=== PATIENT | female | born 1945 | race Caucasian/White ===

== ENCOUNTER 2024-03-20 10:30 | Emergency (ER) | payer OTHER ==
--- OUTSIDE RECORDS SUMMARY | 2024-03-20 10:33 | XMS REPORT | Continuity of Care Document ---
Author Name Unknown Address [address] [facility] [address] [place] [address] [facility] thconnect Address [address] [facility] [address] [place] [address] Care Team Providers Care Rail Grinder Name Role Phone Kylee PIERSON MD, Jacky Nogueira Primary Care Physician U ISABEL Morris Attending Clinician Unavailable Jessee Figueroa MD Attending Clinician JESSEE FIGUEROA Attending Clinician Unavail able PRIYANKA MEANS Attending Clinician Unavailable Priya Redman MD Attending Clinician [phone] PRIYA REDMAN Attending Clinician Unavailable DIANN TORRES Attending Clinician Unavailable DIANN TORRES Attending Clinician Unavailable RADIOLOGY Attending Clinician Unavailable Radiology Attending Clinician Unavailable JESSEE FIGUEROA Admitting Clinician Unavail able Payers Payer Name Policy Type Policy Number Effective Date Expirati on Date Source [employer] MEDICARE Medicare [id number] 2023 00:00:00 Problems Condition Name Condition Details Condition Category Status Onset Date Resolution Date Last Treatment Date Treating Clinician Comments Source Preoperati ve cardiovasc ular examinatio n Preoperati ve cardiovasc ular examinatio n Disease Active 830 00:00: 00 [facility] Preoperati ve cardiovasc ular examinatio n Preoperati ve cardiovasc ular examinatio n Disease Active 8-20 00:00: 00 Timothy Mason Thoracic compressio n fracture Thoracic compressio n fracture Disease Active 6- 00:00: 00 Timothy Mason Scoliosis Scoliosis Disease Active 6- 00:00: 00 Timothy Mason Peripheral neuropathy Peripheral neuropathy Disease Active 6- 00:00: 00 Timothy Mason Memory loss Memory loss Disease Active 09-06 00:00: 00 Timothy Mason Lumbar radiculopa thy Lumbar radiculopa thy Disease Active 09-06 00:00: 00 Timothy Mason Back pain Back pain Disease Active 09-06 00:00: 00 Timothy Mason Cervical myelopathy Cervical myelopathy Disease Active 09-06 00:00: 00 Timothy Mason Overactive bladder Overactive bladder Disease Active 1-25 00:00: 00 Timothy Mason Microscopi c colitis Microscopi c colitis Disease Active 8-03 00:00: 00 [facility] Urinary incontinen ce Urinary incontinen ce Disease Active 5-16 00:00: 00 Timothy Mason Chronic diarrhea Chronic diarrhea Disease Active 3-28 00:00: 00 Timothy Mason Tobacco use Tobacco use Disease Active 2-13 00:00: 00 Timothy Mason Fatigue Fatigue Disease Active 2-13 00:00: 00 Timothy Mason Fall Fall Disease Active 2-13 00:00: 00 Timothy Mason Dysuria Dysuria Disease Active 2-13 00:00: 00 Timothy Mason Pruritus of scalp Pruritus of scalp Disease Active 1-19 00:00: 00 Timothy Mason Lower urinary tract infectious disease Lower urinary tract infectious disease Disease Active 8-17 00:00: 00 Timothy Mason H/O: depression H/O: depression Disease Active 3-10 00:00: 00 Timothy Mason Essential hypertensi on Essential hypertensi on Disease Active 04-10 00:00: 00 Timothy Mason Left foot pain Left foot pain Disease Active 08-25 00:00: 00 [facility] Memory impairment Memory impairment Disease Resolve d 11-19 00:00: 00 2024-01-09 00:00:00 2024-01-09 13:15:48 Timothy Mason Allergies, Adverse Reactions, Alerts Allergy Name Allergy Type Status Severity Reaction(s) Onset Date Inactive Date Treating Clinician Comments Source NO KNOWN ALLERGIE S Drug Class Active [facility] NO KNOWN ALLERGIE S SYSTEMIC Active [facility] ALLERGIE S NOT ON FILE SYSTEMIC Active [facility] NO KNOWN ALLERGIE S SYSTEMIC Active [facility] NO KNOWN ALLERGIE S SYSTEMIC Active [facility] Social History Social Habit Start Date Stop Date Quantity Comments Source Gender identity 2023-06-23 13:43:01 Identifies as female gender (finding[facility] of [facility] ASSERTION Possible [facility] Sexual orientation [facility] History of Social function 2024-01-09 00:00:00 2024-01-09 00:00:00 [facility] Alcoholic beverage intake 2023-11-30 00:00:00 2023-11-30 00:00:00 0 /d [facility] Alcohol intake 2023-01-01 00:00:00 2023-01-01 00:00:00 0 /d [facility] Sex assigned at 1945 00:00:00 1945 00:00:00 [facility] Smoking Status Start Date Stop Date Source Smokes tobacco daily 2023-09-07 00:00:00 [facility] Medications Ordered Medication Name Filled Medication Name Start Date Stop Date Current Medication? Ordering Clinician Indication Dosage Frequency Signature (SIG) Comments Components Source memantine (Namenda) 5 MG tablet memantine (Namenda) 5 MG tablet 2023-04 00:00: 00 Yes 5mg Q.5D TAKE 1 TABLET BY MOUTH TWICE DAILY Timothy Mason oxyBUTYnin chloride 5 mg tablet 11-29 12:37: 57 Yes 5mg Take 1 tablet by mouth in the morning and 1 tablet at noon and 1 tablet in the evening. [facility] loperamide (IMODIUM A-D) 2 mg capsule 11-29 12:37: 57 Yes 2mg Take 1 capsule by mouth 2 (two) times daily as needed for Diarrhea. [facility] omeprazole 40 mg capsule 11-29 12:37: 57 Yes 40mg Take 1 capsule by mouth in the morning. [facility] lisinopriL- hydrochloro thiazide 20-25 mg per tablet 11-29 00:00: 00 11-30 04:59 :00 No [id number] 1{tbl} Take 1 tablet by mouth in the morning. [facility] traMADol (Ultram) 50 MG tablet traMADol (Ultram) 50 MG tablet 10-14 00:00: 00 Yes [id number] 50mg QD TAKE 1 TABLET BY MOUTH DAILY Timothy Mason omeprazole (PriLOSEC) [address] capsule omeprazole (PriLOSEC) [address] capsule 09-06 13:52: 55 Yes 20mg Take 20 mg by mouth in the morning. Take before meals. Timothy Mason aspirin EC 81 MG EC tablet aspirin EC 81 MG EC tablet 09-06 13:52: 55 Yes 81mg QD Take 81 mg by mouth 1 time each day. Timothy Mason gabapentin (Neurontin) 300 MG capsule gabapentin (Neurontin) 300 MG capsule 09-06 00:00: 00 09-06 23:59 :00 No 300mg [id number] 3D Take 1 capsule by mouth in the morning and 1 capsule at noon and 1 capsule in the evening. iTmothy Mason memantine (Namenda) 5 MG tablet memantine (Namenda) 5 MG tablet 09-06 00:00: 00 02-25 00:00 :00 No 5mg Q.5D Take 1 tablet by mouth in the morning and 1 tablet in the evening. Timothy Mason vibegron (GEMTESA) 75 mg Tab 2022-04- 00:00: 00 Yes [id number] 75mg Take 75 mg by mouth in the morning. [facility] alendronate (Fosamax) 70 MG tablet alendronate (Fosamax) 70 MG tablet 2022-04 00:00: 00 Yes 70mg 70 mg = 1 tab, PO, Q7D, # 12 tab, 0 Refill(s) Timothy Mckeon Epic estradioL (ESTRACE) 0.01 % (0.1 mg/gram) vaginal cream 2022-04 00:00: 00 Yes [id number] Apply 1g vaginally at bedtime 3 times per week (Sunday//) [facility] vibegron (GEMTESA) 75 mg Tab 2022-04 0- 00:00: 00 Yes [id number] 75mg Take 75 mg by mouth in the morning. [facility] estradioL (ESTRACE) 0.01 % (0.1 mg/gram) vaginal cream 2022-04 0- 00:00: 00 02-16 00:00 :00 No [id number] Apply 1g vaginally at bedtime every night for 4 weeks [facility] cholestyram ine 4 gram packet 12-13 00:00: 00 Yes [facility] gabapentin 300 mg capsule 12-05 00:00: 00 Yes 300mg Take 1 capsule by mouth in the morning and 1 capsule in the evening. [facility] budesonide 3 mg 24 hr capsule 12-01 00:00: 00 Yes 9mg Take 3 capsules by mouth in the morning. [facility] traMADol (Ultram) 50 MG tablet traMADol (Ultram) 50 MG tablet 11-30 00:00: 00 10-14 00:00 :00 No 50mg Q2D Take 50 mg by mouth every other day. Timothy Mckeon Epic oxybutynin (Ditropan) 5 MG tablet oxybutynin (Ditropan) 5 MG tablet 15 00:00: 00 Yes 0 Refill(s) Timothy Mckeon Epic cholestyram ine (Questran) 4 g packet cholestyram ine (Questran) 4 g packet 2023-0 8-15 00:00: 00 08-21 23:59 :00 No 4g Take 4 g by mouth in the morning and 4 g at noon and 4 g in the evening. Take with meals. Timothy Mason alendronate 70 mg tablet 10-20 00:00: 00 Yes [facility] lisinopriL 5 mg tablet 10-20 00:00: 00 11-29 00:00 :00 No [facility] Cholecalcif frances, Vitamin D3, 125 mcg (5,000 unit) capsule 10-19 00:00: 00 Yes 125ug Take 125 mcg by mouth. [facility] oxyBUTYnin chloride 5 mg tablet 08-15 00:00: 00 08-15 04:59 :00 No 5mg Take 1 tablet by mouth. [facility] FLUoxetine (PROzac) 40 MG capsule FLUoxetine (PROzac) 40 MG capsule 06-19 00:00: 00 Yes 40mg 40 mg = 1 cap, PO, Daily, # 30 cap, 1 Refill(s) Timothy Mason lisinopril- hydroCHLORO thiazide 20-25 MG tablet lisinopril- hydroCHLORO thiazide 20-25 MG tablet 07-13 00:00: 00 Yes 1 tab, PO, Daily, 0 Refill(s) Timothy Mason FLUoxetine (PROZAC) 40 mg capsule 07-04 00:00: 00 Yes [facility] lisinopril- hydrochloro thiazide (PRINZIDE,Z ESTORETIC) 20-25 mg per tablet 07-04 00:00: 00 11-29 00:00 :00 No [facility] Vital Signs Vital Name Observation Time Observation Value Comments Torres smith Systolic blood pressure 2024-01-09 13:15:00 132 mm[Hg] [facility] Diastolic blood pressure 2024-01-09 13:15:00 65 mm[Hg] [facility] Heart rate 2024-01-09 13:15:00 85 /min Gissell Mason Body temperature 2024-01-09 13:15:00 36 Olga [facility] [place] Epic Respiratory rate 2024-01-09 13:15:00 16 /min [facility] Mike Epic Body height 2024-01-09 13:15:00 162.6 cm Augustin huitron [place] Epic Body weight 2024-01-09 13:15:00 62.143 kg Augustin tomy Norrisann Epic BMI 2024-01-09 13:15:00 23.52 kg/m2 Augustin rial Mike Epic Oxygen saturation in Arterial blood by Pulse oximetry 2024-01-09 13:15:00 99 /min [facility] peters Epic Systolic blood pressure 2024-01-09 13:15:00 132 mm[Hg] [facility] Epic Diastolic blood pressure 2024-01-09 13:15:00 65 mm[Hg] [facility] Epic Heart rate 2024-01-09 13:15:00 85 [facility] [place] [facility] Body temperature 2024-01-09 13:15:00 36 [facility] Epic Respiratory rate 2024-01-09 13:15:00 16 /min [facility] Body height 2024-01-09 13:15:00 162.6 cm Augustin huitron [place] Epic Body weight 2024-01-09 13:15:00 62.143 kg Augustin huitron [place] Epic BMI 2024-01-09 13:15:00 23.52 kg/m2 Augustin dominickl Mike Epic Oxygen saturation in Arterial blood by Pulse oximetry 2024-01-09 13:15:00 99 /min [facility] Epic Systolic blood pressure 2023-11-30 17:25:00 187 mm[Hg] [facility] Diastolic blood pressure 2023-11-30 17:25:00 81 mm[Hg] [facility] Heart rate 2023-11-30 17:25:00 60 /[facility] 2023-11-30 17:25:00 18 /min [facility] Body height 2023-11-30 17:25:00 162.6 cm Univ [facility] Body weight 2023-11-30 17:25:00 61.961 kg [facility] BMI 2023-11-30 17:25:00 23.45 kg/m2 [facility] Oxygen saturation in Arterial blood by Pulse oximetry 2023-11-30 17:25:00 99 /min [facility] Systolic blood pressure 2023-02-16 20:32:00 138 mm[Hg] [facility] Diastolic blood pressure 2023-02-16 20:32:00 65 mm[Hg] [facility] Heart rate 2023-02-16 20:32:00 78 /min [facility] Body temperature 2023-02-16 20:32:00 37.11 Olga [facility] Body height 2023-02-16 20:32:00 162.6 cm [facility] Body weight 2023-02-16 20:32:00 62.234 kg [facility] BMI 2023-02-16 20:32:00 23.55 kg/m2 [facility] Procedures Procedure Date / Time Performed Performing Clinicia n Source MR BRAIN WO CONTRAST 2023-05-16 20:26:09 Jessee Figueroa [facility] Encounters Start Date/Time End Date/Time Encounter Type Admission Type Attending [facility] Care Facility Care Department Encounter ID Source 2024-02-25 00:00:00 2024-02-26 09:50:37 Refill Jessee Figueroa [id number] [id number] Timothy Mckeon [facility] 2024-01-09 13:15:00 2024-01-09 13:31:38 Office Visit Jessee Figueroa [id number] Timothy Mckeon [facility] 2024-01-09 13:05:33 2024-01-09 13:31:38 Outpatient Elective JESSEE FIGUEROA EOUT EOUT [id number] [facility] 2023-12-14 07:21:00 2023-12-14 07:21:00 Outpatient PRIYANKA WATTS [facility] [id number] [facility] 2023-12-11 00:00:00 2023-12-12 12:41:34 Telephone Юлия Priya [facility] [id number] 350.1.13.10 [id number] [id number] [facility] 2023-11-30 12:30:00 2023-11-30 13:02:15 Outpatient R ЮЛИЯ [facility] [id number] [facility] 2023-11-30 12:30:00 2023-11-30 13:02:15 Office Visit Юлия [facility] [id number] 350.1.13.10 [id number] [id number] [facility] 2023-10-15 00:00:00 2023-10-15 15:02:10 RefJessee [facility] [id number] 350.1.13.70 [id number] [id number] Timothy butt [facility] 2023-09-07 13:20:19 2023-09-07 14:16:12 Outpatient Elective JESSEE FIGUEROA EOUT EOUT [id number] [facility] 2023-06-08 13:00:00 2023-06-08 13:00:00 Outpatient R DIANN TORRES ELISHA [facility] [id number] [facility] 2023-05-16 13:10:13 2023-05-16 23:59:00 Outpatient R RADIOLOGY [facility] [id number] [facility] 2023-05-16 13:10:13 2023-05-16 23:59:00 Hospital Encounter Radiology [facility] [id number] 350.1.13.10 [id number] [id number] [facility] 2023-03-16 15:00:00 2023-03-16 15:47:23 Outpatient DIANN TAM ELISHA [facility] [id number] [facility] 2023-03-16 15:00:00 2023-03-16 15:47:23 Office Visit Diann Torres [facility] [id number] 350.1.13.10 [id number] [id number] [facility] 2023-02-16 15:00:00 2023-02-16 16:28:33 Outpatient DIANN TAM ELISHA [facility] [id number] [facility] 2023-02-16 15:00:00 2023-02-16 16:28:33 Office Visit Diann Torres [facility] [id number] [id number] [id number] [id number] [facility] 2023-01-29 11:30:00 2023-01-29 11:30:00 Outpatient DIANN TAM ELISHA [facility] [id number] [facility] 2023-01-01 14:30:00 2023-01-01 16:10:05 Outpatient DIANN TAM ELISHA [facility] [id number] [facility] Results Test Description Test Time Test Comments Results Resul t Comments Source MR BRAIN WO CONTRAST 2023-05-03 4 20:54:12 EXAM: MR BRAIN WO CONTRAST HISTORY: 78 years-old Female; memory loss. TECHNIQUE: Multiplanar and multisequence MRI imaging of the brain wasobtained without contrast. COMPARISON: ?None FINDINGS: The exam is degraded by motion artifact. The ventricles and sulci are prominent suggestive of mild degree of globalcerebral volume loss. No midline shift or pathological extra-axial fluidcollection is present. The basal cisterns are unremarkable. No restricted diffusion is present. Few scattered foci of T2/FLAIRhyperintensi ties in the bilateral cerebral hemispheres, likely age-related.No abnormal gradient blooming is visualized. The T2 flow voids for the major intracranial vessels are unremarkable. Noabnormal fluid signal is present in the mastoid air cells or paranasal airsinuses. [facility]
[2024-03-20 11:19] LABS: Sqamous Epithelial <5 /HPF (None Seen); Transitional Epithelial <5 /HPF (None Seen); Urine Bacteria 20-50 /HPF (<20); Urine Culture Reflex Order REFLEXED; Urine Mucus Slight /HPF (None Seen); Urine WBC >50 /HPF (<5); Urine WBC Clump Few /HPF (None Seen)
[2024-03-20 11:20] LABS: Specific Gravity 1.019 (1.005-1.030); Urine Bilirubin NEGATIVE (Negative); Urine Blood 1+ (Negative); Urine Clarity Extremely Turbid (Clear); Urine Color Yellow (Yellow); Urine Glucose NEGATIVE (Negative); Urine Ketones NEGATIVE (Negative); Urine Micro Reflex YN NO BILL NO MICROSCOPIC; Urine Nitrite NEGATIVE (Negative); Urine Protein 1+ (Negative); Urine Urobilinogen Normal (Normal)
[2024-03-20] MEDS ORDERED: SMZ./TMP. 800/160 MG TABLET ONE (11:30)
--- NOTE | 2024-03-20 11:32 | ER ---
Nurse's Notes [facility] Name: Carmen Gabriel Age: 78 yrs Sex: Female : 1945 Arrival Date: 03/20/2024 Time: 10:30 Bed 14 Private MD: Diagnosis: UTI/ Urinary tract infection, site not specified Presentation: 03/20 10:47 Chief complaint: Burning with urination and suprapubic pain x 1 week. Recently hb completed Augmentin for UTI. Coronavirus screen: At this time, the client does not indicate any symptoms associated with coronavirus-19. Ebola Screen: No symptoms or risks identified at this time. Initial Sepsis Screen: Does the patient meet any 2 criteria? No. Patient's initial sepsis screen is negative. Does the patient have a suspected source of infection? No. Patient's initial sepsis screen is negative. Risk Assessment: Do you want to hurt yourself or someone else? Patient reports no desire to harm self or others. Onset of symptoms was March 13, 2024. 10:47 Method Of Arrival: Ambulatory hb 10:47 Acuity: ADRIÁN 4 hb Historical: - Allergies: 10:49 No Known Allergies; hb - PMHx: 10:49 Neuropathy; HTN; Colitits; IBS; hb - PSHx: 10:49 Partial Hysterectomy; Cholecystectomy; hb - Immunization history:: Adult Immunizations unknown. - Infectious Disease History:: Denies. - Social history:: Smoking status: unknown. Screenin:15 [facility] ED Fall Risk Assessment (Adult) History of falling in the last 3 months, ko1 including since admission No falls in past 3 months (0 pts) Confusion or Disorientation Yes (5 pts) Intoxicated or Sedated No (0 pts) Impaired Gait Yes (1 pt) Mobility Assist Device Used Yes (1 pt) Altered Elimination No (0 pt) Score/Fall Risk Level 3 or more points = High Risk Oriented to surroundings, Maintained a safe environment, Educated pt \T\ family on fall prevention, incl call for assistance when getting out of bed, Assessed \T\ reinforced patient's understanding of fall precautions, Hourly rounding (assess needs \T\ fall precautionary measures) done, Used ambulatory aids as needed (educated on \T\ assisted with), Apply high fall risk patient identification: yellow non skid footwear/ fall signage, Utilized family, sitter, or virtual cardiac rehabilitation specialist as indicated. Abuse screen: Denies threats or abuse. Denies injuries from another. Nutritional screening: No deficits noted. Tuberculosis screening: No symptoms or risk factors identified. Assessment: 11:16 General: Appears in no apparent distress. Behavior is cooperative. Pain: Denies pain. ko1 Neuro: No deficits noted. Cardiovascular: No deficits noted. Respiratory: No deficits noted. GI: No deficits noted. : Reports burning with urination. EENT: No deficits noted. Derm: No deficits noted. Musculoskeletal: No deficits noted. Vital Signs: 10:47 BP 148 / 55; Pulse 55; Resp 16; Temp 97.6(O); Pulse Ox 100% on R/A; Weight 58.97 kg; hb Height 5 ft. 4 in. ; Pain 6/10; 11:15 BP 144 / 54; Pulse 58; Resp 17; Pulse Ox 96% ; ko1 11:41 BP 131 / 86; Pulse 64; Resp 18; Pulse Ox 98% ; ko1 10:47 Body Mass Index 22.31 (58.97 kg, 162.56 cm) hb 10:47 Pain Scale: Adult hb ED Course: 10:37 Patient arrived in ED. ra3 10:41 Francisco Javier Daniels MD is Attending Physician. ec2 10:42 Tenisha Blancas, MIGUE is Primary Nurse. ko1 10:49 Triage completed. hb 11:04 UAM Sent. ko1 11:15 No provider procedures requiring assistance completed. Urine collected: clean catch ko1 specimen, cloudy. 11:15 Patient has correct armband on for positive identification. Bed in low position. Call ko1 light in reach. Side rails up X 1. Provided Education on: labs. Client placed on continuous cardiac and pulse oximetry monitoring. NIBP monitoring applied. youth nutritional monitor on. Door closed. Noise minimized. Lights dimmed. Warm blanket given. Pillow given. Assisted to bathroom. 11:15 Arm band placed on right wrist. Patient placed in an exam room, on a stretcher, on ko1 pulse oximetry, Patient notified of wait time. 11:33 Urine Culture Sent. ko1 11:41 Patient did not have IV access during this emergency room visit. ko1 Administered Medications: 11:35 Drug: Trimethoprim-Sulfamethoxazole PO (160 mg-800 mg (DS) 1 tablet PO once Route: PO; ko1 11:47 Follow up: Response: Medication administered at discharge. ko1 Medication: 11:15 VIS not applicable for this client. ko1 Outcome: 11:31 Discharge ordered by . ec2 11:41 Discharged to home ambulatory, with family, ko1 11:41 Condition: stable 11:41 Discharge instructions given to patient, family, Instructed on discharge instructions, follow up and referral plans. medication usage, Demonstrated understanding of instructions, follow-up care, medications, Prescriptions given X 1, :47 Patient left the ED. ko1 Addendum: 03/23/2024 08:29 Addendum: Culture Results: Positive urine culture. No further action required. Bacteria i w sensitive to prescribed antibiotic. Signatures: Dolores Kulkarni, RN Altagracia Greenwood RN RN hb Oliver, Kathy, RN RN ko1 Francisco Javier Daniels MD MD ec2 Racheal Ch 3
--- NOTE | 2024-03-20 11:32 | EDPHYS ---
Physician Documentation [facility] Name: Carmen Gabriel Age: 78 yrs Sex: Female : 1945 Arrival Date: 03/20/2024 Time: 10:30 Bed 14 Private MD: ED Physician Francisco Javier Daniels HPI: 03/20 11:23 This 78 yrs old Female presents to ER via Ambulatory with complaints of ec2 Urinary Problem - burning senation. 11:23 Patient with history of frequent urinary tract infections arrives today for dysuria and ec2 urinary frequency. No fevers or chills, no nausea or vomiting, has generally been. Recently diagnosed with urinary tract infection and finished course of Augmentin.. Historical: - Allergies: 10:49 No Known Allergies; hb - PMHx: 10:49 Neuropathy; HTN; Colitits; IBS; hb - PSHx: 10:49 Partial Hysterectomy; Cholecystectomy; hb - Immunization history:: Adult Immunizations unknown. - Infectious Disease History:: Denies. - Social history:: Smoking status: unknown. ROS: 11:23 Constitutional: as per hpi ec2 Exam: 11:23 Constitutional: GEN: NAD Head: atraumatic Eyes: EOMI Ears: External ears are ec2 normal. CV: regular rate LUNGS: no respiratory distress ABD: non-distended, soft, nontender, not guarding, not rigid SKIN: no evidence of rashes MSK: no evidence of trauma Vital Signs: 10:47 BP 148 / 55; Pulse 55; Resp 16; Temp 97.6(O); Pulse Ox 100% on R/A; Weight 58.97 kg; hb Height 5 ft. 4 in. ; Pain 6/10; 11:15 BP 144 / 54; Pulse 58; Resp 17; Pulse Ox 96% ; ko1 11:41 BP 131 / 86; Pulse 64; Resp 18; Pulse Ox 98% ; ko1 10:47 Body Mass Index 22.31 (58.97 kg, 162.56 cm) hb 10:47 Pain Scale: Adult hb MDM: 10:49 Medical Screening Exam initiated ec2 11:23 Data reviewed: vital signs, nurses notes. ED course: Patient arrives today for dysuria ec2 and urinary frequency. Examination is revealing for well-appearing nontoxic dividual's otherwise in no acute distress with a reassuring examination. Will obtain urine study. Suspect urinary tract infection. Patient otherwise without systemic signs and symptoms, doubt pyelonephritis, doubt organ malfunction.. 11:28 ED course: Urine infectious appearing, start the patient antibiotics have the patient ec2 follow-up PCP. Return precautions given.. 03/20 10:42 Order name: UAM; Complete Time: 11:28 ec2 03/20 11:23 Order name: Urine Culture EDMS Administered Medications: 11:35 Drug: Trimethoprim-Sulfamethoxazole PO (160 mg-800 mg (DS) 1 tablet PO once Route: PO; ko1 11:47 Follow up: Response: Medication administered at discharge. ko1 Disposition Summary: 03/20/24 11:31 Discharge Ordered Notes: Location: Home ec2 Condition: Stable ec2 Diagnosis - UTI/ Urinary tract infection, site not specified ec2 Followup: ec2 - With: Private Physician - When: - Reason: Re-evaluation by your physician Discharge Instructions: - Discharge Summary Sheet ec2 - Urinary Tract Infection, Adult, [id number] ec2 Forms: - Medication Reconciliation Form ec2 - Antibiotic Education ec2 - Prescription Opioid Use ec2 - Patient Portal Instructions ec2 - Leadership Thank You Letter ec2 Prescriptions: - Bactrim DS 800-160 mg Oral Tablet - take 1 tablet ORAL route every 12 hours for 7 days; 14 tablet; Refills: 0, ec2 Product Selection Permitted Signatures: Dispatcher [employer] EDAltagracia Gonsales RN Tenisha Staley RN RN ko1 Francisco Javier Daniels MD MD ec2
[2024-03-20 11:52] VITALS: TEMP 97.6
[2024-03-20 11:55] VITALS: BP 131/86; O2SAT 98
== END 2024-03-20 11:47 | disposition home or self-care (01) ==
LOC: ER 10:30
DX: N39.0 Urinary tract infection, site not specified (principal); I10 Essential (primary) hypertension; K58.9 Irritable bowel syndrome, unspecified; G62.9 Polyneuropathy, unspecified
CPT/HCPCS: 81001; 87077; 87086; 87088; 87186; 99284

== ENCOUNTER 2024-04-05 22:24 | Inpatient (IN) | payer OTHER ==
--- OUTSIDE RECORDS SUMMARY | 2024-04-05 22:30 | XMS REPORT | Continuity of Care Document ---
Author Name Unknown Address [address] [facility] [place] [address] [facility] thconnect Address [address] [place] [address] Care Team Providers Care Forestry Contractor Name Role Phone Kylee PIERSON MD, Jacky A Primary Care Physician Sanjana Ny Attending Clinician Unavailable Henry COSTA, Jessee Silva Attending Clinician JESSEE FIGUEROA Attending Clinician Unavail able Jose-Mbayo_A_AH Attending Clinician Unavailable Jose-Mbayo_A_AH Admitting Clinician Unavailable Payers Payer Name Policy Type Policy Number Effective Date Expirati on Date Source [employer] MEDICARE Medicare [id number] 2023 00:00:00 [facility]PLACEMENT/ADVANT AGE - HMO) [id number] 2019 00:00:00 Problems Condition Name Condition Details Condition Category Status Onset Date Resolution Date Last Treatment Date Treating Clinician Comments Source Preoperati ve cardiovasc ular examinatio n Preoperati ve cardiovasc ular examinatio n Disease Active 11-19 00:00: 00 Memoria l [facility] Thoracic compressio n fracture Thoracic compressio n fracture Disease Active 09-06 00:00: 00 Memoria l Mike Epic Scoliosis Scoliosis Disease Active 09-06 00:00: 00 Memoria l [facility] Epic Peripheral neuropathy Peripheral neuropathy Disease Active 09-06 00:00: 00 Memoria l [facility] Epic Memory loss Memory loss Disease Active 6-07 00:00: 00 Timothy Mckeon Epic Lumbar radiculopa thy Lumbar radiculopa thy Disease Active 6-07 00:00: 00 Timothy Mckeon Epic Back pain Back pain Disease Active 6-07 00:00: 00 Memverna Mckeon Epic Cervical myelopathy Cervical myelopathy Disease Active 6-07 00:00: 00 Memverna Mckeon Epic Overactive bladder Overactive bladder Disease Active 1-25 00:00: 00 Memverna Mckeon Epic Urinary incontinen ce Urinary incontinen ce Disease Active 5-16 00:00: 00 Timothy Mckeon Epic Chronic diarrhea Chronic diarrhea Disease Active 3-28 00:00: 00 Timothy Mckeon Epic Tobacco use Tobacco use Disease Active 2-13 00:00: 00 Timothy Mckeon Epic Fatigue Fatigue Disease Active 2-13 00:00: 00 Timothy Mason Fall Fall Disease Active 2-13 00:00: 00 Timothy Mckeon Epic Dysuria Dysuria Disease Active 2-13 00:00: 00 Timothy Mckeon Epic Pruritus of scalp Pruritus of scalp Disease Active 1-19 00:00: 00 Timothy Mckeon Epic Lower urinary tract infectious disease Lower urinary tract infectious disease Disease Active 8-17 00:00: 00 Timothy Mason H/O: depression H/O: depression Disease Active 3-10 00:00: 00 Timothy Mason Essential hypertensi on Essential hypertensi on Disease Active 1-09 00:00: 00 Timothy Mckeon Epic Memory impairment Memory impairment Disease Resolve d 8-20 00:00: 00 2024-01-09 00:00:00 2024-01-09 13:15:48 Timothy Mckeon Epic Allergies, Adverse Reactions, Alerts Allergy Name Allergy Type Status Severity Reaction(s) Onset Date Inactive Date Treating Clinician Comments Source NO KNOWN ALLERGIE S SYSTEMIC Active MHEOUT ALLERGIE S NOT ON FILE SYSTEMIC Active MHEOUT NO KNOWN ALLERGIE S SYSTEMIC Active MHEOUT NO KNOWN ALLERGIE S SYSTEMIC Active MHEOUT Social History Social Habit Start Date Stop Date Quantity Comments Source Gender identity 2023-06-23 13:43:01 Identifies as female [facility] History of tobacco use Cigarette Smoker [facility] ASSERTION Possible [facility] Sexual orientation [facility] Alcoholic beverage intake 2024-01-09 00:00:00 2024-01-09 00:00:00 Ex-drinker (finding[facility] History of Social function 2024-01-09 00:00:00 2024-01-09 00:00:00 [facility] Smoking Status Start Date Stop Date Source Smokes tobacco daily 2023-09-07 00:00:00 [facility] Medications Ordered Medication Name Filled Medication Name Start Date Stop Date Current Medication? Ordering Clinician Indication Dosage Frequency Signature (SIG) Comments Components Source memantine (Namenda) 5 MG tablet memantine (Namenda) 5 MG tablet 2023-04 00:00: 00 Yes 5mg Q.5D TAKE 1 TABLET BY MOUTH TWICE DAILY Timothy Mckeon [facility] traMADol (Ultram) 50 MG tablet traMADol (Ultram) 50 MG tablet 10-14 00:00: 00 Yes [id number] 50mg QD TAKE 1 TABLET BY MOUTH DAILY Timothy Mckeon [facility] omeprazole (PriLOSEC) [address] capsule omeprazole (PriLOSEC) [address] capsule 09-06 13:52: 55 Yes 20mg Take 20 mg by mouth in the morning. Take before meals. Timothy Mckeon [facility] aspirin EC 81 MG EC tablet aspirin EC 81 MG EC tablet 09-06 13:52: 55 Yes 81mg QD Take 81 mg by mouth 1 time each day. Timothy [facility] gabapentin (Neurontin) 300 MG capsule gabapentin (Neurontin) 300 MG capsule 09-06 00:00: 00 09-06 23:59 :00 No 300mg [id number] 3D Take 1 capsule by mouth in the morning and 1 capsule at noon and 1 capsule in the evening. Timothy [facility] memantine (Namenda) 5 MG tablet memantine (Namenda) 5 MG tablet 09-06 00:00: 00 02-25 00:00 :00 No 5mg Q.5D Take 1 tablet by mouth in the morning and 1 tablet in the evening. Timothy Mason alendronate (Fosamax) 70 MG tablet alendronate (Fosamax) 70 MG tablet 2022-04 00:00: 00 Yes 70mg 70 mg = 1 tab, PO, Q7D, # 12 tab, 0 Refill(s) Timothy Mason traMADol (Ultram) 50 MG tablet traMADol (Ultram) 50 MG tablet 11-30 00:00: 00 10-14 00:00 :00 No 50mg Q2D Take 50 mg by mouth every other day. Timothy Mason oxybutynin (Ditropan) 5 MG tablet oxybutynin (Ditropan) 5 MG tablet 11-14 00:00: 00 Yes 0 Refill(s) Timothy Mason cholestyram ine (Questran) 4 g packet cholestyram ine (Questran) 4 g packet 11-14 00:00: 00 08-21 23:59 :00 No 4g Take 4 g by mouth in the morning and 4 g at noon and 4 g in the evening. Take with meals. Timothy Mason cholecalcif frances (Vitamin D-3) 125 MCG (5000 UT) capsule cholecalcif frances (Vitamin D-3) 125 MCG (5000 UT) capsule 20 00:00: 00 Yes 125ug QD Take 125 mcg by mouth 1 time each day. Timothy Mason FLUoxetine (PROzac) 40 MG capsule FLUoxetine (PROzac) 40 MG capsule 20 00:00: 00 Yes 40mg 40 mg = 1 cap, PO, Daily, # 30 cap, 1 Refill(s) Timothy Mason lisinopril- hydroCHLORO thiazide 20-25 MG tablet lisinopril- hydroCHLORO thiazide 20-25 MG tablet -13 00:00: 00 Yes 1 tab, PO, Daily, 0 Refill(s) Timothy Mason Vital Signs Vital Name Observation Time Observation Value Comments S ource Systolic blood pressure 2024-01-09 13:15:00 132 mm[Hg] [facility] Diastolic blood pressure 2024-01-09 13:15:00 65 mm[Hg] [facility] Epic Heart rate 2024-01-09 13:15:00 85 /min Memor ial Mike Epic Body temperature 2024-01-09 13:15:00 36 [facility] Respiratory rate 2024-01-09 13:15:00 16 /min [facility] Body height 2024-01-09 13:15:00 162.6 cm Augustin rial [place] [facility] Body weight 2024-01-09 13:15:00 62.143 kg Augustin rial [facility] Epic BMI 2024-01-09 13:15:00 23.52 kg/m2 Augustin rial [facility] Oxygen saturation in Arterial blood by Pulse oximetry 2024-01-09 13:15:00 99 /min Maya Chavarria [facility] Systolic blood pressure 2024-01-09 13:15:00 132 mm[Hg] [facility] Diastolic blood pressure 2024-01-09 13:15:00 65 mm[Hg] [facility] Epic Heart rate 2024-01-09 13:15:00 85 /min Memor ial Mike [facility] Body temperature 2024-01-09 13:15:00 36 [facility] Respiratory rate 2024-01-09 13:15:00 16 /min [facility] Body height 2024-01-09 13:15:00 162.6 cm Augustin rial [place] [facility] Body weight 2024-01-09 13:15:00 62.143 kg Augustin rial [facility] BMI 2024-01-09 13:15:00 23.52 kg/m2 Augustin rial [facility] Oxygen saturation in Arterial blood by Pulse oximetry 2024-01-09 13:15:00 99 /min [facility] Encounters Start Date/Time End Date/Time Encounter Type Admission Type Attending Clinicians Care Facility Care Department Encounter ID Source 2024-01-10 09:13:00 Outpatient Suzanne Sanjana [facility] [id number] [facility] 2024-02-25 00:00:00 2024-02-26 09:50:37 Jessee Cruz [id number] 13:15:00 2024-01-09 13:31:38 Office Visit Jessee Figueroa [id number] Timotyh butt [facility] 2024-01-09 13:05:33 2024-01-09 13:31:38 Outpatient Elective PATIVETTE WASSERMANIR EOUT [facility]OUT [id number] [facility]OUT 2023-10-15 00:00:00 2023-10-15 15:02:10 David FigueroaIvetteir Ricardo Sr [id number] Timothy butt [facility] 2023-09-07 13:20:19 2023-09-07 14:16:12 Outpatient Elective HENRY JESSEE EOUT MHEOUT [id number] MHEOUT 2019-05-21 07:24:00 2019-05-21 07:24:00 Outpatient Jose-Mbayo _A_AH VFP P [id number] [facility]
[2024-04-06] MEDS ORDERED: MORPHINE 4 MG/ML SYR ONE (00:15)
[2024-04-06] MEDS ORDERED: ONDANSETRON 4 MG/2 ML VIAL ONE (00:15)
[2024-04-06] MEDS ORDERED: ACETAMINOPHEN 500 MG TAB ONE (00:15)
[2024-04-06 00:56] LABS: Absolute Lymphocytes (CBC) 0.9 K/uL (0.7-4.9); Absolute Monocytes 1.1 K/uL (0.1-1.3); Absolute Neutrophil 11.4 K/uL (1.8-8.0); Basophils % 0.2 % (0-1.3); Hematocrit 34.8 % (36.0-45.0); Hemoglobin 12.1 g/dL (12.0-15.0); Lymphocytes % 6.5 % (15.3-44.8); MCH 30.1 pg (27.0-35.0); MCHC 34.6 g/dL (32.0-36.0); MCV 86.8 fL (80-100); MPV 7.2 fL (7.6-11.3); Monocytes % 8.3 % (3.3-12.3); PT Prothrombin Time 13.4 SECONDS (9.4-12.5); Platelets 382 thou/uL (152-406); Protime INR 1.2; RBC Red Blood Cell Count 4.01 M/uL (3.86-4.86); Red Cell Distribution Width 14.5 % (12.1-15.2)
--- NOTE | 2024-04-06 01:13 | RAD REPORT ---
EXAM DESCRIPTION: Knee Right Wo Cont CLINICAL HISTORY: right knee pain Initial exam. COMPARISON: X-ray right knee 2 views None TECHNIQUE: Contiguous axial sections of the right knee were obtained without contrast. Sagittal and c oronal reformatted images are generated for review. One or more of the following dose optimizing techniques was utilized for this exam: Automated exposure control, adjustment of the mA and/or kV acc ording to patient size, and/or use of iterative reconstruction technique. FINDINGS: No evidence of fracture or deformity. Bones are osteopenic. Popliteal fossa structures are normal. Moderately severe degenerative changes are seen in the patellofemoral joint. Chondrocalcinosis is not ed. No evidence of soft tissue swelling. 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 Electronically signed by: Rosalina Velazquez MD 04/06/2024 01:09 AM [facility] Due to temporary technical issues with the PACS/Geron reporting system, reports are being nehal d by the in-house radiologist without review as a courtesy to ensure prompt reporting the interpreting radiologist is fully responsible for the content of the report. Transcribed Date/Time: 04/06/2024 1:13 AM
[2024-04-06 01:32] LABS: ALT/SGPT 25 U/L (13-56); Albumin 3.2 g/dL (3.4-5.0); Albumin/Globulin Ratio 0.8 (1.1-1.8); Alkaline Phosphatase 69 U/L (45-117); Anion Gap 10.1 mEq/L (5.0-15.0); BUN Blood Urea Nitrogen 16 mg/dL (7-18); Bicarbonate 24 mEq/L (21-32); Bilirubin Total 0.5 mg/dL (0.2-1.0); Globulin 4.1 g/dL (2.3-3.5); Glomerular Filtration Rate 54 ml/min (=/>90); Glucose Level 134 mg/dL (74-106); NT PRO-BNP 156 pg/mL (<450); Protein, Total 7.3 g/dL (6.4-8.2); Sodium Level 134 mEq/L (136-145); Troponin High Sensitivity 6.5 pg/mL (<58.9)
[2024-04-06 01:34] LABS: AST/SGOT 31 U/L (15-37); Bilirubin Direct < 0.2 mg/dL (0-0.2); Bilirubin Indirect, Calculated 0.3 mg/dL (0.2-0.8)
[2024-04-06 01:35] LABS: Magnesium 1.9 mg/dL (1.6-2.4); Potassium 4.1 mEq/L (3.5-5.1)
--- NOTE | 2024-04-06 04:16 | EDPHYS ---
Physician Documentation [facility] Name: Carmen Gabriel Age: 78 yrs Sex: Female : 1945 Arrival Date: 04/05/2024 Time: 22:24 Bed 13 Private MD: ED Physician Lorenzo Bunch HPI: 04/06 04:04 This 78 yrs old Female presents to ER via EMS with complaints of Knee Injury. sp4 17:53 This is a 78-year-old female with history of colitis hypertension and neuropathy. sp4 Patient states she fell at home secondary to the weakness sustaining moderate to severe injury and pain to the right knee associated also with injury and discoloration of the right thumb. Patient states she is not able to ambulate at home. She reports generalized weakness also moderate to severe pain in her right knee. Historical: - Allergies: 04/05 22:56 No Known Allergies; kj2 - PMHx: 22:56 Colitits; HTN; ibs; neuropathy; kj2 - PSHx: 22:56 Cholecystectomy; partial hysterectomy; kj2 - Immunization history:: Adult Immunizations unknown. - Infectious Disease History:: Denies. - Social history:: Smoking status: Patient denies any tobacco usage or history of. - Family history:: not pertinent. ROS: 04/06 17:53 Constitutional: Negative for fever, chills, and weight loss, generalized weakness, sp4 positive fall, positive for right knee injury, positive for right hand and thumb injury. All other systems are negative, Exam: 17:53 Constitutional: Is a frail elderly female, alert and oriented, presents with a right sp4 knee immobilizer, and the right thumb spica splint. Generalized weakness. Nonambulatory. Head/Face: Normocephalic, atraumatic. Eyes: Pupils equal round and reactive to light, extra-ocular motions intact. Lids and lashes normal. Conjunctiva and sclera are not injected. Cornea within normal limits. Periorbital areas with no swelling, redness, or edema. ENT: Nares patent. No nasal discharge, no septal abnormalities noted. Tympanic membranes are normal and external auditory canals are clear. Oropharynx with no redness, swelling, or masses, exudates, or evidence of obstruction, uvula midline. Mucous membranes moist. Neck: Trachea midline, no thyromegaly or masses palpated, and no cervical lymphadenopathy. Supple, full range of motion without nuchal rigidity, or vertebral point tenderness. Chest/axilla: Normal chest wall appearance and motion. Nontender with no deformity. No lesions are appreciated. Cardiovascular: Regular rate and rhythm with a normal S1 and S2. No gallops, murmurs, or rubs. Normal PMI, no JVD. No pulse deficits. Respiratory: Lungs have equal breath sounds bilaterally, clear to auscultation and percussion. No rales, rhonchi or wheezes noted. No increased work of breathing, no retractions or nasal flaring. Abdomen/GI: Soft, with normal bowel sounds. No distension or tympany. No guarding or rebound. No evidence of tenderness throughout. Back: No spinal tenderness. No costovertebral tenderness. Skin: Warm, dry with normal turgor. Normal color with no rashes, no lesions, and no evidence of cellulitis. MS/ Extremity: Pulses equal, no cyanosis. Neurovascular intact. To severe right knee pain and swelling, moderate right thumb discoloration and swelling. Appears to have subluxed metacarpophalangeal joint of the right thumb Neuro: Awake and alert, GCS 15, oriented to person, place, time, and situation. Cranial nerves II-XII grossly intact. Motor strength 5/5 in all extremities. Sensory grossly intact. Psych: Awake, alert, with orientation to person, place and time. Behavior, mood, and affect are within normal limits 17:53 ECG was reviewed by the Attending Physician. EKG at 0 541 normal sinus rhythm rate 60 sp4 Vital Signs: 04/05 22:54 BP 167 / 75; Pulse 69; Resp 20; Temp 97.9; Pulse Ox 97% on R/A; Weight 58.97 kg; Height kj2 5 ft. 4 in. ; 04/06 00:00 BP 159 / 86; Pulse 70; Resp 20; Pulse Ox 97% ; kj2 01:00 BP 167 / 67; Pulse 68; Resp 18; Pulse Ox 98% ; kj2 02:00 BP 150 / 70; Pulse 72; Resp 20; Pulse Ox 100% ; kj2 03:00 BP 138 / 70; Pulse 70; Resp 18; Pulse Ox 98% on R/A; kj2 04:00 BP 140 / 68; Pulse 70; Resp 18; Pulse Ox 100% on R/A; kj2 05:44 BP 142 / 64; Pulse 68; Resp 18; Pulse Ox 100% ; kj2 04/05 22:54 Body Mass Index 22.31 (58.97 kg, 162.56 cm) kj2 NIH Stroke Scale Scores: 17:53 NIHSS Score: 0 sp4 Ajit Coma Score: 17:53 Eye Response: spontaneous(4). Motor Response: obeys commands(6). Verbal Response: sp4 oriented(5). Total: 15. MDM: 04/05 23:29 Medical screening is not applicable. sp4 04/06 04:05 ED course: PROCEDURE:XR CHEST 1 VIEW HISTORY:CHEST PAIN COMPARISON: None FINDINGS: The sp4 heart appears unremarkable. The lungs are clear there is no alveolar consolidation, effusion or pneumothorax. There are no acute bony or soft tissue abnormalities. IMPRESSION: No acute cardiopulmonary process. Electronically signed by: Rosalina Velazquez MD 04/06/2024 01:09 AM. 04:06 ED course: CLINICAL HISTORY: right hand pain; COMPARISON: None. FINDINGS: The osseous sp4 structures all appear intact.. The bones are osteopenic. Degenerative changes are seen in the carpometacarpal joint of the thumb. Mild degenerative changes and deformities seen involving the MCP joint of the thumb and PIP joint of the middle finger. The soft tissues are normal. There is no foreign body. IMPRESSION: 1. No acute osseous abnormalities. . ED course: EXAM DESCRIPTION: Forearm Right RadLex: XR FOREARM RIGHT Views: 2 CLINICAL HISTORY: ; R forearm injury; COMPARISON: None. FINDINGS: Negative for acute fracture, dislocation, or radiopaque foreign body. Presence of a bandage is seen in the proximal forearm. Bones are osteopenic. IMPRESSION: 1. No acute findings.. ED course: EXAM DESCRIPTION: Knee Right Wo Cont CLINICAL HISTORY: right knee pain Initial exam. COMPARISON: X-ray right knee 2 views None TECHNIQUE: Contiguous axial sections of the right knee were obtained without contrast. Sagittal and coronal reformatted images are generated for review. One or more of the following dose optimizing techniques was utilized for this exam: Automated exposure control, adjustment of the mA and/or kV according to patient size, and/or use of iterative reconstruction technique. FINDINGS: No evidence of fracture or deformity. Bones are osteopenic. Popliteal fossa structures are normal. Moderately severe degenerative changes are seen in the patellofemoral joint. Chondrocalcinosis is noted. No evidence of soft tissue swelling. 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 05:41 Differential Diagnosis altered mental status, sepsis, flu. Data reviewed: vital signs, sp4 nurses notes, EMS record, lab test result(s), EKG, radiologic studies, CT scan, plain films. Consideration of Admission/Observation Escalation of care including admission/observation considered. ED course: Stable for admission for generalized weakness. 04/05 23:38 Order name: Basic Metabolic Panel; Complete Time: 03:58 sp4 04/05 23:38 Order name: CBC with Diff; Complete Time: 03:58 sp4 04/05 23:38 Order name: LFT's; Complete Time: 03:58 sp4 04/05 23:38 Order name: Magnesium; Complete Time: 03:58 sp4 04/05 23:38 Order name: NT PRO-BNP; Complete Time: 03:58 sp4 04/05 23:38 Order name: PT-INR; Complete Time: 03:58 sp4 04/05 23:38 Order name: Troponin HS; Complete Time: 03:58 sp4 04/05 23:39 Order name: Urinalysis W/Microscopic sp4 04/06 04:20 Order name: Lactate w/ 2H reflex if indic. EDMS 04/06 04:20 Order name: Magnesium EDMS 04/06 04:20 Order name: NT PRO-BNP EDMS 04/06 04:20 Order name: Phosphorus EDMS 04/06 04:20 Order name: Urinalysis w/ reflexes EDMS 04/06 04:20 Order name: Basic Metabolic Panel EDMS 04/06 04:20 Order name: Basic Metabolic Panel EDMS 04/06 04:20 Order name: CBC with Automated Diff EDMS 04/06 04:20 Order name: CBC with Automated Diff EDMS 04/05 23:38 Order name: XRAY Chest (1 view) sp4 04/05 23:38 Order name: Hand Right 3 View XRAY sp4 04/05 23:38 Order name: Forearm Right XRAY sp4 04/05 23:43 Order name: Knee Right Wo Cont; Complete Time: 03:58 EDMS 04/06 04:21 Order name: Occupational Therapy Consult EDMS 04/06 04:21 Order name: Physical Therapy Consult EDMS 04/05 23:38 Order name: Cardiac monitoring; Complete Time: 05:55 sp4 04/05 23:38 Order name: EKG - Nurse/Tech; Complete Time: 05:55 sp4 04/05 23:38 Order name: IV Saline Lock; Complete Time: 05:55 sp4 04/05 23:38 Order name: Labs collected and sent; Complete Time: 05:55 sp4 04/05 23:38 Order name: O2 Per Protocol; Complete Time: 05:43 sp4 04/05 23:38 Order name: O2 Sat Monitoring; Complete Time: 05:43 sp4 04/05 23:39 Order name: Misc. Order: Apply Pure Wic sp4 04/06 04:16 Order name: Ridley sp4 EC:41 Rate is 60 beats/min. Rhythm is regular, Normal Sinus Rhythm. QRS [place] is Normal. [place] sp4 interval is normal. QRS interval is normal. QT interval is prolonged. No Q waves. T waves are Normal. No ST changes noted. Clinical impression: No evidence of ischemia. Interpreted by me. Reviewed by me. Administered Medications: 00:37 Drug: morphine IVP or IV 4 mg IVP once over 4 mins Route: IVP; Infused Over: 4 mins; kj2 Site: left wrist; 02:39 Follow up: Response: No adverse reaction kj2 00:37 Drug: Ondansetron IVP 4 mg IVP once; over 2 minutes Route: IVP; Site: left wrist; kj2 02:38 Follow up: Response: No adverse reaction kj2 00:37 Drug: Acetaminophen PO 1000 mg PO once Route: PO; kj2 02:38 Follow up: Response: No adverse reaction kj2 04:59 Drug: HYDROcodone-acetaminophen PO 5 mg-325 mg 2 tabs PO once Route: PO; kj2 05:46 Follow up: Response: No adverse reaction kj2 Disposition Summary: 04/06/24 04:15 Hospitalization Ordered Notes: Hospitalization Status: Inpatient Admission sp4 Provider: Prince roula Saunders Location: Telemetry/MedSurg (Inpatient) sp4 Condition: Fair sp4 Problem: new sp4 Symptoms: have improved sp4 Bed/Room Type: Standard sp4 Room Assignment: 228(04/06/24 04:28) cg Diagnosis - Muscle weakness (generalized) sp4 - Acute generalized weakness, acute fall at home, acute right knee sprain, acute sp4 right thumb sprain Forms: - Medication Reconciliation Form sp4 - SBAR form sp4 - Leadership Thank You Letter sp4 NIH Stroke Scale - NIH Stroke Score Date: 04/06/2024 Time: 17:53 Total Score = 0 10. Dysarthria (speech clarity - read or repeat words) - 0(Normal) 11. Extinction and Inattention (visual/tactile/auditory/spatial/personal) - 0(No abnormality) 1a. Level of Consciousness (LOC) - 0(Alert) 1b. Level of Consciousness (LOC) (Month \T\ Age) - 0(Both) 1c. LOC Commands (Open \T\ Closes Eyes/Boat Canvas Maker And Installer) - 0(Both) 2. Best Gaze (Lateral Gaze Paresis) - 0(Normal) 3. Visual Field Loss - 0(No visual loss) 4. Facial Palsy - 0(Normal) 5a. Left Arm: Motor (10-second hold) - 0(No drift) 5b. Right Arm: Motor (10-second hold) - 0(No drift) 6a. Left Leg: Motor (5-second hold - always test supine) - 0(No drift) 6b. Right Leg: Motor (5-second hold - always test supine) - 0(No drift) 7. Limb Ataxia (finger/nose \T\ heel/king[place] - test with eyes open) - 0(Absent) 8. Sensory Loss (pinprick arms/legs/face) - 0(Normal) 9. Best Language: Aphasia (description/naming/reading) - 0(No aphasia) Initials: sp4 Signatures: Dispatcher [employer] EDMS Raven Delarosa, RN RN Lorenzo Yee MD MD sp4 Kelsie Dia RN RN kj2 Corrections: (The following items were deleted from the chart) 04/05 23:38 23:38 BASIC METABOLIC PANEL+C.LAB.BRZ ordered. EDMS EDMS 23:38 23:38 CBC+H.LAB.BRZ ordered. EDMS EDMS 23:38 23:38 HEPATIC FUNCTION+C.LAB.BRZ ordered. EDMS EDMS 23:38 23:38 MAGNESIUM+C.LAB.BRZ ordered. EDMS EDMS 23:38 23:38 PROBNP+C.LAB.BRZ ordered. EDMS EDMS 23:38 23:38 PROTIME (+INR)+COAG.LAB.BRZ ordered. EDMS EDMS 23:38 23:38 Troponin High Sensitivity+C.LAB.BRZ ordered. EDMS EDMS 23:38 23:38 Chest Single View+RAD.RAD.BRZ ordered. EDMS EDMS 23:43 23:38 Pelvis Wo Cont+CT.RAD.BRZ ordered. EDMS EDMS 04/06 04:28 04:15 sp4 cg
--- NOTE | 2024-04-06 04:16 | ER ---
Nurse's Notes [facility] Name: Carmen Gabriel Age: 78 yrs Sex: Female : 1945 Arrival Date: 04/05/2024 Time: 22:24 Bed 13 Private MD: Diagnosis: Muscle weakness (generalized);Acute generalized weakness, acute fall at home, acute right knee sprain, acute right thumb sprain Presentation: 04/05 22:54 Chief complaint: EMS states: patient fell at home injured right knee. Coronavirus kj2 screen: Client denies travel out of the [place] in the last 14 days. Ebola Screen: No symptoms or risks identified at this time. Initial Sepsis Screen: Does the patient meet any 2 criteria? No. Patient's initial sepsis screen is negative. Does the patient have a suspected source of infection? No. Patient's initial sepsis screen is negative. Risk Assessment: Do you want to hurt yourself or someone else? Patient reports no desire to harm self or others. Onset of symptoms was April 05, 2024. 22:54 Method Of Arrival: EMS: [employer] kj2 22:54 Acuity: ADRIÁN 3 kj2 Triage Assessment: 22:57 General: Appears in no apparent distress. uncomfortable, Behavior is calm, cooperative. kj2 Pain: Complains of pain in right knee Pain currently is 8 out of 10 on a pain scale. Neuro: Level of Consciousness is awake, alert, Oriented to person, place, time, situation. Cardiovascular: Patient's skin is warm and dry. Respiratory: Airway is patent Respiratory effort is unlabored. GI: No signs and/or symptoms were reported involving the gastrointestinal system. : No signs and/or symptoms were reported regarding the genitourinary system. Musculoskeletal: Reports pain in right leg. 04/06 06:00 Injury Description: right knee fracture. kj2 Historical: - Allergies: 04/05 22:56 No Known Allergies; kj2 - PMHx: 22:56 Colitits; HTN; ibs; neuropathy; kj2 - PSHx: 22:56 Cholecystectomy; partial hysterectomy; kj2 - Immunization history:: Adult Immunizations unknown. - Infectious Disease History:: Denies. - Social history:: Smoking status: Patient denies any tobacco usage or history of. - Family history:: not pertinent. Screenin:59 [facility] ED Fall Risk Assessment (Adult) History of falling in the last 3 months, kj2 including since admission Yes- single mechanical fall (1 pt) Confusion or Disorientation No (0 pts) Intoxicated or Sedated No (0 pts) Impaired Gait Yes (1 pt) Mobility Assist Device Used Yes (1 pt) Altered Elimination No (0 pt) Score/Fall Risk Level 0 - 2 = Low Risk Maintained a safe environment, Hourly rounding (assess needs \T\ fall precautionary measures) done. Abuse screen: Denies threats or abuse. Denies injuries from another. Nutritional screening: No deficits noted. Tuberculosis screening: No symptoms or risk factors identified. Assessment: 22:58 General: see triage assessment. kj2 04/06 00:00 Reassessment: Patient appears in no apparent distress at this time. Patient and/or kj2 family updated on plan of care and expected duration. Pain level reassessed. Patient is alert, oriented x 3, equal unlabored respirations, skin warm/dry/pink. 01:00 Reassessment: Patient appears in no apparent distress at this time. Patient and/or kj2 family updated on plan of care and expected duration. Pain level reassessed. Patient is alert, oriented x 3, equal unlabored respirations, skin warm/dry/pink. 01:00 Reassessment: pure wicc placed, pt timur well. kj2 02:00 Reassessment: Patient appears in no apparent distress at this time. Patient and/or kj2 family updated on plan of care and expected duration. Pain level reassessed. Patient is alert, oriented x 3, equal unlabored respirations, skin warm/dry/pink. 03:00 Reassessment: Patient appears in no apparent distress at this time. Patient and/or kj2 family updated on plan of care and expected duration. Pain level reassessed. Patient is alert, oriented x 3, equal unlabored respirations, skin warm/dry/pink. 04:00 Reassessment: Patient appears in no apparent distress at this time. Patient and/or kj2 family updated on plan of care and expected duration. Pain level reassessed. Patient is alert, oriented x 3, equal unlabored respirations, skin warm/dry/pink. 04:00 Reassessment: patient refused man catheter. kj2 05:00 Reassessment: Patient appears in no apparent distress at this time. Patient and/or kj2 family updated on plan of care and expected duration. Pain level reassessed. Patient is alert, oriented x 3, equal unlabored respirations, skin warm/dry/pink. 05:43 Reassessment: Patient appears in no apparent distress at this time. Patient and/or kj2 family updated on plan of care and expected duration. Pain level reassessed. Patient is alert, oriented x 3, equal unlabored respirations, skin warm/dry/pink. Vital Signs: 04/05 22:54 BP 167 / 75; Pulse 69; Resp 20; Temp 97.9; Pulse Ox 97% on R/A; Weight 58.97 kg; Height kj2 5 ft. 4 in. ; 04/06 00:00 BP 159 / 86; Pulse 70; Resp 20; Pulse Ox 97% ; kj2 01:00 BP 167 / 67; Pulse 68; Resp 18; Pulse Ox 98% ; kj2 02:00 BP 150 / 70; Pulse 72; Resp 20; Pulse Ox 100% ; kj2 03:00 BP 138 / 70; Pulse 70; Resp 18; Pulse Ox 98% on R/A; kj2 04:00 BP 140 / 68; Pulse 70; Resp 18; Pulse Ox 100% on R/A; kj2 05:44 BP 142 / 64; Pulse 68; Resp 18; Pulse Ox 100% ; kj2 04/05 22:54 Body Mass Index 22.31 (58.97 kg, 162.56 cm) kj2 Easton Coma Score: 17:53 Eye Response: spontaneous(4). Motor Response: obeys commands(6). Verbal Response: sp4 oriented(5). Total: 15. NIH Stroke Scale Scores: 17:53 NIHSS Score: 0 sp4 ED Course: 04/05 22:38 Patient arrived in ED. ha1 22:52 Lorenzo Bunch MD is Attending Physician. jh7 22:53 Kelsie Dia RN is Primary Nurse. kj2 22:56 Triage completed. kj2 22:59 Patient has correct armband on for positive identification. Placed in gown. Bed in low kj2 position. Call light in reach. Provided Education on: call light. 04/06 00:41 XRAY Chest (1 view) In Process Unspecified. EDMS 00:41 Hand Right 3 View XRAY In Process Unspecified. EDMS 00:41 Forearm Right XRAY In Process Unspecified. EDMS 00:41 Knee Right Wo Cont In Process Unspecified. EDMS 04:14 Prince Saunders MD is Hospitalizing Provider. sp4 06:00 No provider procedures requiring assistance completed. Patient admitted, IV remains in kj2 place. 06:01 Arm band placed on. kj2 Administered Medications: 00:37 Drug: morphine IVP or IV 4 mg IVP once over 4 mins Route: IVP; Infused Over: 4 mins; kj2 Site: left wrist; 02:39 Follow up: Response: No adverse reaction kj2 00:37 Drug: Ondansetron IVP 4 mg IVP once; over 2 minutes Route: IVP; Site: left wrist; kj2 02:38 Follow up: Response: No adverse reaction kj2 00:37 Drug: Acetaminophen PO 1000 mg PO once Route: PO; kj2 02:38 Follow up: Response: No adverse reaction kj2 04:59 Drug: HYDROcodone-acetaminophen PO 5 mg-325 mg 2 tabs PO once Route: PO; kj2 05:46 Follow up: Response: No adverse reaction kj2 Medication: 04/05 22:59 VIS not applicable for this client. kj2 Outcome: 04/06 04:15 Decision to Hospitalize by Provider. sp4 06:00 Condition: stable kj2 06:00 Admitted to Med/surg accompanied by blanca, via stretcher, kj2 06:00 Instructed on the need for admit, 06:01 Patient left the ED. kj2 NIH Stroke Scale - NIH Stroke Score Date: 04/06/2024 Time: 17:53 Total Score = 0 10. Dysarthria (speech clarity - read or repeat words) - 0(Normal) 11. Extinction and Inattention (visual/tactile/auditory/spatial/personal) - 0(No abnormality) 1a. Level of Consciousness (LOC) - 0(Alert) 1b. Level of Consciousness (LOC) (Month \T\ Age) - 0(Both) 1c. LOC Commands (Open \T\ Closes Eyes/Production Control Expediter) - 0(Both) 2. Best Gaze (Lateral Gaze Paresis) - 0(Normal) 3. Visual Field Loss - 0(No visual loss) 4. Facial Palsy - 0(Normal) 5a. Left Arm: Motor (10-second hold) - 0(No drift) 5b. Right Arm: Motor (10-second hold) - 0(No drift) 6a. Left Leg: Motor (5-second hold - always test supine) - 0(No drift) 6b. Right Leg: Motor (5-second hold - always test supine) - 0(No drift) 7. Limb Ataxia (finger/nose \T\ heel/kingston - test with eyes open) - 0(Absent) 8. Sensory Loss (pinprick arms/legs/face) - 0(Normal) 9. Best Language: Aphasia (description/naming/reading) - 0(No aphasia) Initials: sp4 Signatures: Dispatcher [employer] EDMelida Correia, CLIFF CANDY WRAPPING MACHINE OPERATOR jh7 Digna Gracia, RN RN ha1 Lorenzo Bunch MD MD sp4 Kelsie Dia RN RN kj2
[2024-04-06] MEDS ORDERED: ONDANSETRON 4 MG/2 ML VIAL IV PRN (04:17)
--- NOTE | 2024-04-06 04:50 | P.HP ---
Certification for Inpatient Patient admitted to: Observation With expected LOS: <2 Midnights Practitioner: I am a practitioner with admitting privileges, knowledge of patient current condition, hospital course, and medical plan of care. Services: Services provided to patient in accordance with Admission requirements found in Title 42 Section 412.3 of the Code of Federal Regulations Patient History Date of Service: 04/06/24 Reason for admission: generalized weakness and fall History of Present Illness: Patient is a 78-year-old female with past medical history of de pression and chronic pain. She presented to the ER following an episode of fall. Patient usually ambulates with a cane, which she uses when she is outside of the house. Patient currently lives in a mobile home. When indoor, she does not usually use her cane. She has been falling a lot lately. She was in the process of opening her house door when she suddenly lost balance and fell. She fell onto her right side injuring her right elbow and right knee. Patient denies hitting her head onto the ground. She also denies loss of consciousness. Otherwise, she has been in her usual state of health. CT of the knee revealed moderately severe degenerative changes of the right knee. She is being admitted for therapy. Allergies No Known Allergies Allergy (Verified 06/05/16 12:10) Home Medications: Aspirin [Aspirin EC 81 MG] 81 mg PO DAILY 06/02/16 Fluoxetine HCl [Prozac] 40 mg PO DAILY 06/02/16 Multivitamin [Multivitamins] 1 each PO DAILY 06/02/16 Omeprazole 20 mg PO DAILY 06/02/16 lisinopriL [Prinivil*] 20 mg PO DAILY 06/02/16 Physical Examination - Physical Exam General: In no apparent distress, Cachectic HEENT: Atraumatic, Normocephalic Respiratory: Clear to auscultation bilaterally, Normal air movement Cardiovascular: No edema, Normal pulses, Regular rate/rhythm, Normal S1 S2, Abnormal S3 Musculoskeletal: Other (Right lower extremity with knee immobilizer) Neurological: Normal speech - Studies Laboratory Data (last 24 hrs) 04/06/24 04/06/24 04/06/24 00:30 00:30 00:30 WBC 13.50 H Hgb 12.1 Hct 34.8 L Plt Count 382 PT 13.4 H INR 1.20 Sodium 134 L Potassium 4.1 BUN 16 Creatinine 1.05 H Glucose 134 H Magnesium 1.9 Total Bilirubin 0.5 AST 31 ALT 25 Alkaline Phosphatase 69 Assessment and Plan - Problems (Diagnosis) (1) Generalized weakness Current Visit: Yes Status: Acute (2) Ground-level fall Current Visit: Yes Status: Acute (3) Depression Current Visit: Yes Status: Acute (4) Chronic pain Current Visit: Yes Status: Acute - Plan Assessment This is a 78-year-old female who is being admitted following an episode of ground-level fall which occurred while she was trying to open her house door. She states that she lost her balance. She denies syncope, head trauma. Workup in the ER including any CT which revealed moderately severe deg enerative changes. Patient has a history of cervical spondylolysis. She usually ambulates with a cane. Fall Generalized weakness Cervical spondylolysis Depression Chronic pain Plan: Will admit under observation with telemetry Multimodal pain regimen PT/OT before discharge Spine MRI ordered to assess degree of spine pathology Nicotine patch Resume home medications upon reconciliation - Advance Directives Does patient have a Living Will: No Does patient have a Durable POA for Healthcare: No
[2024-04-06] MEDS ORDERED: HYDROCODONE/APAP 5/325 MG TAB ONE (04:51)
--- NOTE | 2024-04-06 06:16 | RAD REPORT ---
PROCEDURE: R CHEST 1 VIEW HISTORY: HEST PAIN COMPARISON: None FINDINGS: The heart appears unremarkable. The lungs are clear there is no alveolar consolidation, effusion or p neumothorax. There are no acute bony or soft tissue abnormalities. IMPRESSION: No acute cardiopulmonary process. Electronically signed by: Rosalina Velazquez MD 04/06/2024 01:09 AM [facility] Due to temporary technical issues with the PACS/ADmantX reporting system, reports are being nehal d by the in-house radiologist without review as a courtesy to ensure prompt reporting the interpreting radiologist is fully responsible for the content of the report. Transcribed Date/Time: 04/06/2024 6:16 AM
--- NOTE | 2024-04-06 06:17 | RAD REPORT ---
EXAM DESCRIPTION: Hand Right 3 View RadLex: XR HAND 3 OR MORE VIEWS RIGHT Views: 3 CLINICAL HISTORY: right hand pain; COMPARISON: None. FINDINGS: The osseous structures all appear intact.. The bones are osteopenic. Degenerative changes are seen in the carpometacarpal joint of the thumb. Mild degenerative changes and deformities seen involving the MCP joint of the thumb and PIP joint of the middle finger. The soft tissues are normal. There is no foreign body. IMPRESSION: 1. No acute osseous abnormalities. Electronically signed by: Rosalina Velazquez MD 04/06/2024 01:10 AM [facility] Due to temporary technical issues with the PACS/Clarassance reporting system, reports are being nehal d by the in-house radiologist without review as a courtesy to ensure prompt reporting the interpreting radiologist is fully responsible for the content of the report. Transcribed Date/Time: 04/06/2024 6:16 AM
--- NOTE | 2024-04-06 06:17 | RAD REPORT ---
EXAM DESCRIPTION: Forearm Right RadLex: XR FOREARM RIGHT Views: 2 CLINICAL HISTORY: ; R forearm injury; COMPARISON: None. FINDINGS: Negative for acute fracture, dislocation, or radiopaque foreign body. Presence of a bandage is seen i n the proximal forearm. Bones are osteopenic. IMPRESSION: 1. No acute findings. Electronically signed by: Rosalina Velazquez MD 04/06/2024 01:05 AM [facility] Due to temporary technical issues with the PACS/MD Lingo reporting system, reports are being nehal d by the in-house radiologist without review as a courtesy to ensure prompt reporting the interpreting radiologist is fully responsible for the content of the report. Transcribed Date/Time: 04/06/2024 6:17 AM
[2024-04-06] MEDS: NA CHLORIDE 0.9% 1,000 ML IV SCH (06:35)
[2024-04-06] MEDS: NICOTINE 14 MG/PAT TD SCH (06:36)
[2024-04-06] MEDS: GABAPENTIN 100 MG CAP PO SCH (06:36)
[2024-04-06] MEDS: ENOXAPARIN 40 MG/0.4 ML SQ SCH (09:25)
[2024-04-06 10:31] LABS: Calcium Oxalate Crystals- Ur Few /HPF (None Seen); Specific Gravity 1.025 (1.005-1.030); Sqamous Epithelial <5 /HPF (None Seen); Urine Bacteria None Seen /HPF (<20); Urine Bilirubin NEGATIVE (Negative); Urine Blood Negative (Negative); Urine Clarity Turbid (Clear); Urine Color Yellow (Yellow); Urine Culture Reflex Order NOT NEEDED; Urine Glucose NEGATIVE (Negative); Urine Ketones NEGATIVE (Negative); Urine Microscopic Reflex YN ORDER UMIC; Urine Nitrite NEGATIVE (Negative); Urine Protein TRACE (Negative); Urine Urobilinogen Normal (Normal); Urine pH 5.5 (5.0-7.0)
[2024-04-06] MEDS: PANTOPRAZOLE 40MG TABLET PO SCH (10:33)
[2024-04-06 10:37] LABS: Magnesium 1.8 mg/dL (1.6-2.4); Phosphorus 2.6 mg/dL (2.5-4.9)
[2024-04-06] MEDS: HYDROMORPHONE HCL 1 MG/ML INJ IV PRN (12:02)
--- NOTE | 2024-04-06 16:26 | RAD REPORT ---
EXAM: C Spine Wo Con HISTORY: Neck injury status post fall. Neck pain COMPARISON: None TECHNIQUE: Multiple contiguous axial images were obtained in a CT of the cervical spine without contr ast. Sagittal and coronal reformats were performed. One or more of the following dose reduction techniques were used: Automated exposure control, adjustment of the mA and kV according to patient si ze, and iterative reconstruction. Unless otherwise specified, incidental findings do not require dedicated imaging follow-up. FINDINGS: No fracture or dislocation seen Moderate spondylosis C5-6. No high-grade central stenosis seen. IMPRESSION: No fracture visualized. If the patient continues to have symptoms to suggest spinal cord/spinal canal/neural foraminal pathol ogy MRI would be recommended
--- NOTE | 2024-04-06 16:31 | RAD REPORT ---
EXAMINATION: CT LUMBAR SPINE WITHOUT CONTRAST CLINICAL INDICATION: Fall with back pain. TECHNIQUE: Axial CT images were obtained through the lumbar spine in soft tissue and bone windows wit hout intravenous contrast. Coronal and Sagittal reformatted images were created from the data set. One or more of the following dose reduction techniques were used: Automated exposure control, adjustm ent of the mA and/ or kV according to patient size, and/or iterative reconstruction. Unless otherwise specified, incidental findings do not require dedicated imaging follow-up. COMPARISON: MRI 2022. Thoracic spine FINDINGS: For purposes of this dictation, it is assumed that there are 5 non rib-bearing lumbar type vertebrae, and the most caudal fully segmented lumbar vertebra is labeled L5. Mild old compression fracture T12 vertebral body. Mild chronic posterior subluxation T12 on L1. No lumbar fracture visualized. Mild spondylosis. No high-grade central spinal stenosis seen. No dislocation. Atherosclerosis IMPRESSION: No acute fracture seen. If the patient continues to have symptoms to suggest spinal canal pathology then MRI would be recomm ended
--- NOTE | 2024-04-06 16:53 | P.PN ---
Date of Service: 04/06/24 0700 Rounds this am were made. Daughter at bedside states that she and her PATTI are Nurses and have been remodeling a home for MrGabbi and Mrs. Gabriel that does not have a ramp on entry and is easier to enter. Mrs. Gabriel is hemodynamicly stable and only complains of severe right knee pain radiating to her foot. She is in a knee immobilizer but her right lower ext is shortened and externally rotated. I will obtain a CT of pt's right hip. As imaging of c-spine and lumbar area not done in ED, I will image those as well. 1645 Awaiting read of CTs done today. CT right hip personally reviewed by me shows a moderately displaced proximal femur fracture. Will place NPO post MN. Dr. Joy broadcast operations manager for Ortho starting tomorrow. Will discuss with house nursing lasting room supervisor.
--- NOTE | 2024-04-06 16:55 | RAD REPORT ---
EXAM:Hip Right Wo Con CLINICAL INDICATION: Right hip pain TECHNIQUE: Computed axial tomography right hip with coronal and sagittal reconstruction. One or more of the following dose reduction techniques were used: Automated exposure control, adjustment of the mA and kV according to the patient size, and iterative reconstruction. COMPARISON: No prior exam. FINDINGS: Comminuted intertrochanteric fracture right femur. Lesser trochanter is avulsed medially. Greater tro chanter is avulsed. Moderate displacement of fracture fragments with angulation present at the fracture site. Moderate osteoarthritis right hip.. Moderate right hip joint effusion . IMPRESSION: Comminuted right femoral fracture
[2024-04-07 06:26] LABS: Absolute Lymphocytes (CBC) 1.3 K/uL (0.7-4.9); Absolute Neutrophil 6.9 K/uL (1.8-8.0); Basophils % 0.3 % (0-1.3); Eosinophils % 0.1 % (0-4.4); Hemoglobin 10.1 g/dL (12.0-15.0); Lymphocytes % 13.9 % (15.3-44.8); MCH 30.5 pg (27.0-35.0); MCHC 34.7 g/dL (32.0-36.0); MPV 7.2 fL (7.6-11.3); Monocytes % 10.6 % (3.3-12.3); Neutrophils % 75.1 % (41.7-73.7); Platelets 261 thou/uL (152-406); Red Cell Distribution Width 14.3 % (12.1-15.2)
[2024-04-07 06:40] LABS: Anion Gap 7.9 mEq/L (5.0-15.0); Potassium 3.9 mEq/L (3.5-5.1)
--- NOTE | 2024-04-07 07:31 | P.PN ---
Subjective Date of Service: 04/07/24 Chief Complaint: generalized weakness and fall N.p.o. for Ortho evaluation for hip fracture <Annemarie Lopez - Last Filed: 04/07/24 18:23> Date of Service: 04/07/24 Patient was seen and examined. Events of the last 24 hours have been noted. Spoke with with SARA regarding patient's clinical picture after evaluating and examining the patient independently. I performed a substantial part of the MDM during this patient's care today. I personally made or approved the documented management plan and acknowledge its risk of complications. I agree with the findings and documentation provided in the SARA's notes. <Sundeep Orr Maddy - Last Filed: 04/15/24 10:39> Review of Systems 10-point ROS is otherwise unremarkable <Annemarie Lopez - Last Filed: 04/07/24 18:23> Physical Examination - Vital Signs Temperature: 97.8 F Blood Pressure: 130/58 Pulse: 73 Respirations: 17 Pulse Ox (%): 91 - Physical Exam General: Alert, Oriented x3, Other (Anxious) HEENT: Atraumatic, Normocephalic Neck: Supple, 2+ carotid pulse no bruit Respiratory: Clear to auscultation bilaterally, Normal air movement Cardiovascular: Normal pulses, Regular rate/rhythm Capillary refill: <2 Seconds Gastrointestinal: Normal bowel sounds, Soft and benign Musculoskeletal: Other (Right hip fracture surgical dressing, right proximal phalanx, splint in place with Jorge Luis wrap) Integumentary: No rashes, No breakdown Neurological: Normal speech, Normal strength at 5/5 x4 extr - Studies Laboratory Data (last 24 hrs) 04/06/24 10:08 Phosphorus 2.6 Magnesium 1.8 <Annemarie Lopez - Last Filed: 04/07/24 18:23> Assessment And Plan - Current Problems (Diagnosis) (1) Closed right hip fracture Current Visit: Yes Status: Acute (2) Proximal phalanx fracture of finger Current Visit: Yes Status: Acute (3) DJD (degenerative joint disease) Current Visit: Yes Status: Acute (4) Spondylosis of cervical spine Current Visit: Yes Status: Acute (5) Chronic pain Current Visit: Yes Status: Acute (6) Ground-level fall Current Visit: Yes Status: Acute - Plan - Plan Assessment This is a 78-year-old female who is being admitted following an episode of ground-level fall which occurred while she was trying to open her house door. She states that she lost her balance. She denies syncope, head trauma. Workup in the ER including any CT which revealed moderately severe degenerative changes. Patient has a history of cervical spondylolysis. She usually ambulates with a cane. right hip fracture Fall Generalized weakness Cervical spondylolysis Depression Chronic pain Plan: ortho consult for right hip fracture, fracture of the proximal phalanx of the right hand Will admit under observation with telemetry Multimodal pain regimen PT/OT before discharge Spine MRI ordered to assess degree of spine pathology Nicotine patch Resume home medications upon reconciliation Critical Care: No Time Spent Managing PTS Care (In Minutes): 35 <Annemarie Lopez - Last Filed: 04/07/24 18:23>
--- NOTE | 2024-04-07 09:47 | DS ---
This is a consult not Discharge summary: I have not seen this patient for quite some time. I believe I saw her perhaps 10 to 15 years in the past for a different problem. She was admitted to the hospital after a fall. She complains of pain in her right lower extremity as well as her right hand. She complains of pain in her right knee as well. On physical examination, she has a thumb spica splint on the right hand. She appears neurovascularly intact. She has pain with palpation of the knee or with any range of motion of the hip. Otherwise, all other long bones or joints are palpated without pain or crepitation. Review of CT imaging studies performed in the emergency department demonstrate a fracture dislocation of the right thumb metacarpophalangeal joint with the fracture being of the proximal phalanx. It is displaced. Also seen is a comminuted fracture of the right hip in the intertrochanteric region with involvement of the lesser trochanter. She also has degenerative changes of the right knee without any fracture seen. Assessment: This is an 78-year-old female now with a fracture dislocation of the right thumb at the metacarpophalangeal joint, most likely associated with a very large fracture fragment on the radial aspect of the proximal phalanx also with a comminuted intertrochanteric fracture. Plan: At this time, she will be n.p.o. I do not really know that she needs any cardiac clearance. However, we will leave this up to the hospitalist and Anesthesia. With regard to her orthopedic treatment plan is for right hip closed reduction with intramedullary fran fixation as well as right hand closed open reduction with probable pin fixation. This has been discussed with her in detail and will most likely proceed with this today. All of her questions were otherwise answered. /SHANE Voice ID: [id number] Report ID: [id number] JAXON
[2024-04-07] MEDS: clonazePAM 0.5 MG TAB PO SCH (12:47)
[2024-04-07] MEDS: FLUOXETINE 20 MG CAP PO SCH (12:52)
[2024-04-07] MEDS ORDERED: FENTANYL CITR 100 MCG/2 ML ONE (14:01)
[2024-04-07] MEDS ORDERED: propofoL 200 MG/20 ML VIAL IV ONE (14:01)
[2024-04-07] MEDS ORDERED: LIDOCAINE 2% MPF 5 ML VIAL ONE (14:01)
[2024-04-07] MEDS ORDERED: ROCURONIUM 50 MG/5 ML VIAL IV ONE (14:01)
[2024-04-07] MEDS ORDERED: ONDANSETRON 4 MG/2 ML VIAL ONE (14:01)
[2024-04-07] MEDS: SUGAMMADEX SODIUM 200 MG/2 ML VIAL IV ONE (14:14)
[2024-04-07] MEDS: HYDROMORPHONE HCL 1 MG/ML INJ ONE (14:14)
[2024-04-07] MEDS: Ringers Lactate 1,000 ML IV ONE (14:30)
[2024-04-07] MEDS: TRANEXAMIC ACID 1,000 MG/10 ML VIAL IV ONE (15:13)
[2024-04-07] MEDS ORDERED: EPHEDRINE SULF 50 MG/ML VIAL ONE (15:22)
[2024-04-07] MEDS ORDERED: dexAMETHasone 10 MG/ML VIAL ONE (15:32)
[2024-04-07] MEDS: CEFAZOLIN SODIUM 1 GM/VIAL ONE (15:40)
--- NOTE | 2024-04-07 17:11 | P.BOP ---
Preoperative diagnosis: right hip IT fracture, right thumb proximal phalanx fx Postoperative diagnosis: same Primary procedure: Right hip NEHA fran Secondary procedure: right thumb prox phalanx CRPP Estimated blood loss: 100ccs Anesthesia: General Complications: None Transferred to: Recovery Room Condition: Good
--- NOTE | 2024-04-07 17:53 | RAD REPORT ---
Exam: Hip in OR right 2 view TECHNIQUE: 47 intraoperative fluoroscopic spot images right hip obtained. It demonstrates performance of placement of a intramedullary fran and screws within the right femur. Surgery performed by Dr. Joy Fluoroscopy time 1.2 minutes
--- NOTE | 2024-04-07 17:55 | RAD REPORT ---
Exam: Fluoroscopy less than one hour Technique: 20 fluoroscopic intraoperative spot images obtained They demonstrate pinning of a fracture first proximal phalanx. Fluoroscopy time 1 minute. Surgery performed by Dr. Joy
[2024-04-07] MEDS: OXYBUTYNIN ER 5 MG TAB PO SCH (18:56)
[2024-04-07] MEDS: ENSURE SURGERY 237 ML CAN PO SCH (21:00)
[2024-04-07] MEDS: HYDROCODONE/APAP 7.5/325 MG TAB PO PRN (21:52)
--- NOTE | 2024-04-08 01:13 | OP ---
Date of Procedure: 04/07/2024 Surgeon: Davian Joy MD Preoperative Diagnoses: 1.Right comminuted displaced intertrochanteric fracture with involvement of the lesser trochanter. 2.Right thumb proximal phalanx fracture, which is intra-articular. Postoperative Diagnoses: 1.Right comminuted displaced intertrochanteric fracture with involvement of the lesser trochanter. 2.Right thumb proximal phalanx fracture, which is intra-articular. Procedure Performed: 1.Right hip closed reduction with intramedullary fran fixation using to fix this system. 2.Right thumb closed reduction, percutaneous pin fixation. Estimated Blood Loss: Combined procedures are 100 cc. Complications: There were no complications. Specimens: No pathology specimens sent. Indication For Operation: The patient is an 78-year-old female who unfortunately fell, injuring her right hand as well as her right hip. She was seen and examined in the emergency department where x-r ays of the hand demonstrated an intra-articular fracture of the base of the thumb proximal phalanx as well as significant subluxation of the thumb. The fragment is a fairly large radial fragment. With regard to her hip, she has a CT scan which demonstrated a comminuted fracture of the intertrochanter ic region of the right hip. Risks, benefits, and alternatives of different methods of treating both of these problems were discussed with the patient. Family was also in attendance. The plan is for c losed reduction and intramedullary fixation of the right hip as well as closed reduction and pin fixa tion of the right thumb. The patient understands things as presented and wishes to proceed. Description Of Procedure: The patient was taken to the operating room, placed in supine position. G eneral anesthesia was easily obtained by the Anesthesia staff. Following this, she was then placed o n the fracture table. Right lower extremity was then appropriately positioned as well as the rest of her bony prominences and C-arm was brought in and a good closed reduction was obtained. It should b e noted that she does have quite valgus hips. Following this, the right lower extremity was then pre pped and draped in usual sterile fashion for the procedure and an incision was made superior to the g reater trochanter. It was taken down carefully through skin and soft tissues. Meticulous hemostasis was being maintained using Bovie electrocautery. The fascia was divided above the greater trochante r and finger was introduced and the greater trochanter was easily palpated. After this, a starting p oint was then used using the starting awl. This was placed and the guidewire was then placed. It wa s checked under biplanar C-arm radiography to ensure it is in the correct position. Following this, hand reamers used to ream past the lesser trochanter and a size 9 x 130 Affixus nail was selected. T his was selected to allow for better reproduction of the valgus hip. After this was placed to approp riate depth, the cephalomedullary screw was placed followed by antirotation screw. However, the redu ction was maintained and a distal locking screw was then placed. The wound was irrigated and the fas sary was closed in a watertight fashion using heavy Vicryl sutures and followed by closure of the skin using Vicryl, followed by lisbeth. The patient was then placed in an Aquacel dressing. She was the n taken off the fracture table and then carefully transferred onto a standard operating table with a hand table. After this, a well-padded tourniquet was placed on superior right arm, however it was no t used throughout the case. Right upper extremity was then prepped and draped in usual fashion proce asha. C-arm was brought in and the fracture was found to be rotated as well as highly displaced. Th e use of standard closed reduction techniques were done. This does not give absolutely anatomic redu ction, but it was very much improved and the thumb itself appears now concentrically located. A 3.5 pin was selected and it was placed using biplanar C-arm radiography which appears to fix the fragment . The thumb was then brought to range of motion as well as ulnar and radial movements and the fractu re fragment appears to be maintained well with the pin. There is consideration of placing a second p in. However, there is concern that we may cause this fragment to become multifragmented and it appea rs now to be stable. After this, the pin was then cut and bent and sterile dressing was placed follo wed by a thumb spica splint. The patient was then awakened and taken to recovery room in good condition. There were no complicati ons from either procedure. SE/MODL Voice ID: [id number] Report ID: [id number]
[2024-04-08] MEDS: CEFAZOLIN 1 GM in NA CHLORIDE 0.9% 50 ML IVPB SCH (01:17)
[2024-04-08 05:25] LABS: Absolute Lymphocytes (CBC) 0.8 K/uL (0.7-4.9); Absolute Monocytes 1.1 K/uL (0.1-1.3); Absolute Neutrophil 6.5 K/uL (1.8-8.0); Basophils % 0.1 % (0-1.3); Hematocrit 25.6 % (36.0-45.0); Hemoglobin 8.9 g/dL (12.0-15.0); MCH 30.5 pg (27.0-35.0); MCHC 34.8 g/dL (32.0-36.0); MCV 87.9 fL (80-100); MPV 7.5 fL (7.6-11.3); Monocytes % 13.6 % (3.3-12.3); Neutrophils % 77.3 % (41.7-73.7); Nucleated Red Blood Cells % 0.1 % (0-0); Platelets 211 thou/uL (152-406); RBC Red Blood Cell Count 2.91 M/uL (3.86-4.86); Red Cell Distribution Width 14.3 % (12.1-15.2)
[2024-04-08 06:19] LABS: Albumin 2.2 g/dL (3.4-5.0); Anion Gap 9.2 mEq/L (5.0-15.0); Magnesium 1.9 mg/dL (1.6-2.4); Potassium 3.2 mEq/L (3.5-5.1)
[2024-04-08 06:20] LABS: Phosphorus 1.2 mg/dL (2.5-4.9)
--- NOTE | 2024-04-08 07:27 | P.PN ---
Date of Service: 04/08/24 Subjective Chief Complaint: generalized weakness and fall s/p right hip fracture, pain control as needed analgesia Patient ambulate with physical therapy today, will eval for inpatient for discharge plan Review of Systems 10-point ROS is otherwise unremarkable Physical Examination - Vital Signs reviewed - Physical Exam General: Alert, Oriented x3, afebrile HEENT: Atraumatic, Normocephalic Neck: Supple, 2+ carotid pulse no bruit Respiratory: Clear to auscultation bilaterally, unlabored Cardiovascular: Normal pulses, Regular rate/rhythm Capillary refill: <2 Seconds Gastrointestinal: Normal bowel sounds, nontender Musculoskeletal: Other (Right hip fracture surgical dressing, right proximal phalanx, splint in place with Jorge Luis wrap) Integumentary: No rashes, No breakdown Neurological: Normal speech, Normal strength at 5/5 x4 extr Assessment And Plan - Current Problems (Diagnosis) (1) Closed right hip fracture Current Visit: Yes Status: Acute (2) Proximal phalanx fracture of finger Current Visit: Yes Status: Acute (3) DJD (degenerative joint disease) Current Visit: Yes Status: Acute (4) Spondylosis of cervical spine Current Visit: Yes Status: Acute (5) Chronic pain Current Visit: Yes Status: Acute (6) Ground-level fall Current Visit: Yes Status: Acute - Plan - Plan Assessment This is a 78-year-old female who is being admitted following an episode of ground-level fall which occurred while she was trying to open her house door. She states that she lost her balance. She denies syncope, head trauma. Workup in the ER including any CT which revealed moderately severe degenerative changes. Patient has a history of cervical spondylolysis. She usually ambulates with a cane. right hip fracture Fall Generalized weakness Cervical spondylolysis Depression Chronic pain Plan: Right comminuted displaced intertrochanteric fracture with involvement of the lesser trochanter. Right thumb proximal phalanx fracture, which is intra-articular. ortho consult for right hip fracture, fracture of the proximal phalanx of the right hand Status post 04/07 right hip closed reduction with intramedullary fran fixation using to fix this system. 2. Right thumb closed reduction, percutaneous pin fixation. Will admit under observation with telemetry Multimodal pain regimen PT/OT before discharge planning Spine MRI ordered to assess degree of spine pathology Nicotine patch Resume home medications upon reconciliation Critical Care: No Time Spent Managing PTS Care (In Minutes): 35 <Annemarie Lopez - Last Filed: 04/08/24 16:57> Patient was seen and examined. Events of the last 24 hours have been noted. Spoke with with SARA regarding patient's clinical picture after evaluating and examining the patient independently. I performed a substantial part of the MDM during this patient's care today. I personally made or approved the documented management plan and acknowledge its risk of complications. I agree with the findings and documentation provided in the SARA's notes. <Sundeep Orr - Last Filed: 04/15/24 10:38>
[2024-04-08] MEDS: POTASSIUM PHOS IN 0.9 % NACL 15 MMOL/250 ML BAG IV SCH (08:45)
[2024-04-08] MEDS: Multi-VIT(Centravite Senior) 1 TAB TAB PO SCH (08:46)
[2024-04-08] MEDS: PANTOPRAZOLE 40MG TABLET PO SCH (08:47)
[2024-04-08] MEDS ORDERED: HOME MED 1 EA UNK (Omeprazole [Omeprazole] 20 MG Tablet.Dr) PO SCH (09:00)
[2024-04-08] MEDS ORDERED: LOPERAMIDE HCL 2 MG CAPSULE PO PRN (17:11)
[2024-04-08] MEDS: CHOLESTYRAMINE/ASP 4 GM/PKT PO SCH (17:50)
[2024-04-09 05:20] LABS: Absolute Eosinophils 0.1 K/uL (0-0.5); Absolute Lymphocytes (CBC) 1.2 K/uL (0.7-4.9); Absolute Monocytes 0.8 K/uL (0.1-1.3); Absolute Neutrophil 6.1 K/uL (1.8-8.0); Basophils % 0.2 % (0-1.3); Eosinophils % 1.5 % (0-4.4); Hematocrit 23.3 % (36.0-45.0); Hemoglobin 7.9 g/dL (12.0-15.0); Lymphocytes % 14.3 % (15.3-44.8); MCV 88.3 fL (80-100); MPV 7.5 fL (7.6-11.3); Monocytes % 9.8 % (3.3-12.3); Neutrophils % 74.2 % (41.7-73.7); Nucleated Red Blood Cells % 0.1 % (0-0); Platelets 214 thou/uL (152-406); RBC Red Blood Cell Count 2.64 M/uL (3.86-4.86); Red Cell Distribution Width 14.7 % (12.1-15.2)
[2024-04-09 05:37] LABS: Albumin 1.8 g/dL (3.4-5.0); Anion Gap 9.6 mEq/L (5.0-15.0); Potassium 3.6 mEq/L (3.5-5.1)
[2024-04-09 05:38] LABS: Phosphorus 1.2 mg/dL (2.5-4.9)
[2024-04-09] MEDS: POTASSIUM PHOS IN 0.9 % NACL 15 MMOL/250 ML BAG IV ONE ×2 (06:06→09:13)
--- NOTE | 2024-04-09 15:20 | P.PN ---
Date of Service: 04/09/24 Subjective Chief Complaint: generalized weakness and fall s/p right hip fracture, pain control as needed analgesia Pending acute rehab authorization, family at bedside Review of Systems 10-point ROS is otherwise unremarkable Physical Examination - Vital Signs reviewed - Physical Exam General: Alert, Oriented x3, afebrile Neck: Supple, supple Respiratory: Respirations equal, unlabored Cardiovascular: Normal pulses, Regular rate/rhythm Capillary refill: <2 Seconds Gastrointestinal: Normal bowel sounds, nontender Musculoskeletal: Other right lower extremity weakness, right upper extremity splint Integumentary: (Right hip fracture surgical dressing, right proximal phalanx, splint in place with Jorge Luis wrap) Neurological: Normal speech, Normal strength at 5/5 x4 extr, pulses right upper lower extremity intact Assessment And Plan - Current Problems (Diagnosis) (1) Closed right hip fracture Current Visit: Yes Status: Acute (2) Proximal phalanx fracture of finger Current Visit: Yes Status: Acute (3) DJD (degenerative joint disease) Current Visit: Yes Status: Acute (4) Spondylosis of cervical spine Current Visit: Yes Status: Acute (5) Chronic pain Current Visit: Yes Status: Acute (6) Ground-level fall Current Visit: Yes Status: Acute - Plan - Plan Assessment This is a 78-year-old female who is being admitted following an episode of ground-level fall which occurred while she was trying to open her house door. She states that she lost her balance. She denies syncope, head trauma. Workup in the ER including any CT which revealed moderately severe degenerative changes. Patient has a history of cervical spondylolysis. She usually ambulates with a cane. right hip fracture Fall Generalized weakness Cervical spondylolysis Depression Chronic pain Plan: Right comminuted displaced intertrochanteric fracture with involvement of the lesser trochanter. Right thumb proximal phalanx fracture, which is intra-articular. ortho consult for right hip fracture, fracture of the proximal phalanx of the right hand Status post 04/07 right hip closed reduction with intramedullary fran fixation using to fix this system. 2. Right thumb closed reduction, percutaneous pin fixation. Will admit under observation with telemetry Multimodal pain regimen PT/OT before discharge planning Spine MRI ordered to assess degree of spine pathology Nicotine patch Resume home medications upon reconciliation Critical Care: No Time Spent Managing PTS Care (In Minutes): 35 <Annemarie Lopez - Last Filed: 04/09/24 15:18> Patient was seen and examined. Events of the last 24 hours have been noted. Spoke with with SARA regarding patient's clinical picture after evaluating and examining the patient independently. I performed a substantial part of the MDM during this patient's care today. I personally made or approved the documented management plan and acknowledge its risk of complications. I agree with the findings and documentation provided in the SARA's notes. <Sundeep Orr - Last Filed: 04/15/24 10:38>
[2024-04-09] MEDS: lisinopriL 20 MG TAB PO SCH (15:23)
[2024-04-09] MEDS: ASPIRIN EC 81 MG TAB PO SCH (15:23)
[2024-04-10 06:25] LABS: Absolute Eosinophils 0.1 K/uL (0-0.5); Absolute Lymphocytes (CBC) 1.2 K/uL (0.7-4.9); Absolute Monocytes 0.8 K/uL (0.1-1.3); Absolute Neutrophil 5.3 K/uL (1.8-8.0); Basophils % 0.3 % (0-1.3); Eosinophils % 1.4 % (0-4.4); Hematocrit 22.9 % (36.0-45.0); Hemoglobin 7.8 g/dL (12.0-15.0); Lymphocytes % 16.4 % (15.3-44.8); MCHC 34.2 g/dL (32.0-36.0); MCV 87.6 fL (80-100); MPV 7.5 fL (7.6-11.3); Monocytes % 11.3 % (3.3-12.3); Neutrophils % 70.6 % (41.7-73.7); Nucleated Red Blood Cells % 0.1 % (0-0); Platelets 219 thou/uL (152-406); RBC Red Blood Cell Count 2.62 M/uL (3.86-4.86); Red Cell Distribution Width 14.4 % (12.1-15.2)
[2024-04-10 06:27] LABS: Albumin 1.8 g/dL (3.4-5.0); Anion Gap 8.8 mEq/L (5.0-15.0); Phosphorus 1.6 mg/dL (2.5-4.9); Potassium 3.8 mEq/L (3.5-5.1)
[2024-04-10] MEDS: lisinopriL 20 MG TAB PO SCH (08:14)
[2024-04-10] MEDS: POTASSIUM CL SA 10 MEQ TAB PO ONE (08:14)
[2024-04-10] MEDS: POTASS/SODIUM PHOSPHATE 1 PKT POWD.PACK PO SCH (08:15)
[2024-04-10] MEDS: ASPIRIN EC 81 MG TAB PO SCH (14:22)
--- NOTE | 2024-04-10 20:42 | P.PN ---
Date of Service: 04/10/24 Subjective Chief Complaint: generalized weakness and fall No acute issues, will ambulate with physical therapy today. Review of Systems 10-point ROS is otherwise unremarkable Physical Examination - Vital Signs reviewed - Physical Exam General: Alert, Oriented x3, no acute distress noted Neck: Supple, supple Respiratory: Clear to auscultation, unlabored Cardiovascular: Normal pulses, Regular rate/rhythm Capillary refill: <2 Seconds Gastrointestinal: Normal bowel sounds x 4 quadrants Musculoskeletal: Other right lower extremity weakness, right upper extremity splint Integumentary: (Right hip fracture surgical dressing, right proximal phalanx, splint in place with Jorge Luis wrap) Neurological: Normal speech, Normal strength at 5/5 x4 extr, pulses right upper lower extremity intact Assessment And Plan - Current Problems (Diagnosis) (1) Closed right hip fracture Current Visit: Yes Status: Acute (2) Proximal phalanx fracture of finger Current Visit: Yes Status: Acute (3) DJD (degenerative joint disease) Current Visit: Yes Status: Acute (4) Spondylosis of cervical spine Current Visit: Yes Status: Acute (5) Chronic pain Current Visit: Yes Status: Acute (6) Ground-level fall Current Visit: Yes Status: Acute - Plan - Plan Assessment This is a 78-year-old female who is being admitted following an episode of ground-level fall which occurred while she was trying to open her house door. She states that she lost her balance. She denies syncope, head trauma. Workup in the ER including any CT which revealed moderately severe degenerative changes. Patient has a history of cervical spondylolysis. She usually ambulates with a cane. right hip fracture Fall Generalized weakness Cervical spondylolysis Depression Chronic pain Plan: Right comminuted displaced intertrochanteric fracture with involvement of the lesser trochanter. Right thumb proximal phalanx fracture, which is intra-articular. ortho consult for right hip fracture, fracture of the proximal phalanx of the right hand Status post 04/07 right hip closed reduction with intramedullary fran fixation using to fix this system. 2. Right thumb closed reduction, percutaneous pin fixation. Will admit under observation with telemetry Multimodal pain regimen PT/OT before discharge planning Spine MRI ordered to assess degree of spine pathology Nicotine patch Resume home medications upon reconciliation Critical Care: No Time Spent Managing PTS Care (In Minutes): 35 <Annemarie Lopez - Last Filed: 04/10/24 20:42> Patient was seen and examined. Events of the last 24 hours have been noted. Spoke with with SARA regarding patient's clinical picture after evaluating and examining the patient independently. I performed a substantial part of the MDM during this patient's care today. I personally made or approved the documented management plan and acknowledge its risk of complications. I agree with the findings and documentation provided in the SARA's notes. <Sundeep Orr - Last Filed: 04/15/24 10:37>
[2024-04-11 05:34] VITALS: BMI 22.3
[2024-04-11 05:45] LABS: Absolute Eosinophils 0.2 K/uL (0-0.5); Absolute Lymphocytes (CBC) 1.3 K/uL (0.7-4.9); Absolute Monocytes 0.9 K/uL (0.1-1.3); Absolute Neutrophil 5.4 K/uL (1.8-8.0); Basophils % 0.4 % (0-1.3); Eosinophils % 1.9 % (0-4.4); Hematocrit 21.9 % (36.0-45.0); Hemoglobin 7.6 g/dL (12.0-15.0); Lymphocytes % 16.3 % (15.3-44.8); MCH 30.2 pg (27.0-35.0); MCHC 34.6 g/dL (32.0-36.0); MCV 87.1 fL (80-100); MPV 7.4 fL (7.6-11.3); Monocytes % 12.1 % (3.3-12.3); Neutrophils % 69.3 % (41.7-73.7); Platelets 224 thou/uL (152-406); RBC Red Blood Cell Count 2.51 M/uL (3.86-4.86); Red Cell Distribution Width 14.4 % (12.1-15.2)
[2024-04-11 06:02] LABS: Albumin 1.7 g/dL (3.4-5.0); Anion Gap 8.9 mEq/L (5.0-15.0); Magnesium 1.9 mg/dL (1.6-2.4); Potassium 3.9 mEq/L (3.5-5.1)
[2024-04-11] MEDS: POTASSIUM CL SA 10 MEQ TAB PO ONE (08:13)
[2024-04-11] MEDS: POTASS/SODIUM PHOSPHATE 1 PKT POWD.PACK PO SCH (08:13)
[2024-04-11] MEDS: NA CHLORIDE 0.9% 250 ML IV SCH (10:52)
[2024-04-11] MEDS: DIPHENHYDRAMINE 50 MG/ML VIAL IV ONE (10:57)
[2024-04-11] MEDS: FUROSEMIDE 20 MG/ 2ML VIAL IV ONE (10:57)
[2024-04-11] MEDS: CEFTRIAXONE 1,000 MG in NA CHLORIDE 0.9% 50 ML IVPB ONE (15:23)
[2024-04-11 17:46] LABS: Hematocrit 29.2 % (36.0-45.0)
--- NOTE | 2024-04-11 18:54 | P.PN ---
Date of Service: 04/11/24 Subjective Chief Complaint: generalized weakness and fall Hemoglobin 7.6 today, will transfuse 1 units of packed red blood cells posttransfusion infused at 10.0 Review of Systems 10-point ROS is otherwise unremarkable Physical Examination - Vital Signs reviewed - Physical Exam General: Alert, Oriented x3, afebrile Neck: Supple, supple Respiratory: Clear to auscultation, equal breath sounds Cardiovascular: Normal pulses, +1 edema to right lower extreme Capillary refill: <2 Seconds Gastrointestinal: Normal bowel sounds, nontender Musculoskeletal: Other right lower extremity weakness, right upper extremity splint Integumentary: (Right hip fracture surgical dressing, right proximal phalanx, splint in place with Jorge Luis wrap) Neurological: Normal speech, Normal strength at 5/5 x4 extr, pulses right upper lower extremity intact Assessment And Plan - Current Problems (Diagnosis) Closed right hip fracture microcytic anemia Current Visit: Yes Status: Acute (2) Proximal phalanx fracture of finger Current Visit: Yes Status: Acute microcytic anemia Current Visit: Yes Status: Acute DJD (degenerative joint disease) Current Visit: Yes Status: Acute Spondylosis of cervical spine Current Visit: Yes Status: Acute Chronic pain Current Visit: Yes Status: Acute Ground-level fall Current Visit: Yes Status: Acute - Plan - Plan Assessment This is a 78-year-old female who is being admitted following an episode of ground-level fall which occurred while she was trying to open her house door. She states that she lost her balance. She denies syncope, head trauma. Workup in the ER including any CT which revealed moderately severe degenerative changes. Patient has a history of cervical spondylolysis. She usually ambulates with a cane. right hip fracture Fall Generalized weakness Cervical spondylolysis Depression Chronic pain Plan: Right comminuted displaced intertrochanteric fracture with involvement of the lesser trochanter. Right thumb proximal phalanx fracture, which is intra-articular. ortho consult for right hip fracture, fracture of the proximal phalanx of the right hand Status post 1/6 right hip closed reduction with intramedullary fran fixation using to fix this system. 2. Right thumb closed reduction, percutaneous pin fixation. Will admit under observation with telemetry Multimodal pain regimen PT/OT before discharge planning Spine MRI ordered to assess degree of spine pathology Nicotine patch Resume home medications upon reconciliation Type and cross, transfuse 1 unit packed red blood cell Critical Care: No Time Spent Managing PTS Care (In Minutes): 35 <Annemarie Lopez - Last Filed: 04/11/24 18:48> Patient was seen and examined. Events of the last 24 hours have been noted. Spoke with with SARA regarding patient's clinical picture after evaluating and examining the patient independently. I performed a substantial part of the MDM during this patient's care today. I personally made or approved the documented management plan and acknowledge its risk of complications. I agree with the findings and documentation provided in the SARA's notes. <Sundeep Orr - Last Filed: 04/15/24 10:37>
[2024-04-11 21:22] LABS: Hematocrit 28.1 % (36.0-45.0); Hemoglobin 9.7 g/dL (12.0-15.0)
[2024-04-12 05:23] LABS: Absolute Eosinophils 0.2 K/uL (0-0.5); Absolute Lymphocytes (CBC) 1.2 K/uL (0.7-4.9); Absolute Monocytes 0.9 K/uL (0.1-1.3); Absolute Neutrophil 6.3 K/uL (1.8-8.0); Basophils % 0.3 % (0-1.3); Eosinophils % 1.9 % (0-4.4); Hematocrit 29.4 % (36.0-45.0); Hemoglobin 10.2 g/dL (12.0-15.0); MCH 29.5 pg (27.0-35.0); MCHC 34.5 g/dL (32.0-36.0); MCV 85.6 fL (80-100); MPV 7.5 fL (7.6-11.3); Monocytes % 10.9 % (3.3-12.3); Neutrophils % 72.9 % (41.7-73.7); Platelets 243 thou/uL (152-406); RBC Red Blood Cell Count 3.44 M/uL (3.86-4.86); Red Cell Distribution Width 14.6 % (12.1-15.2)
[2024-04-12 05:36] LABS: Albumin 1.7 g/dL (3.4-5.0); Anion Gap 10.6 mEq/L (5.0-15.0); Magnesium 1.7 mg/dL (1.6-2.4); Potassium 3.6 mEq/L (3.5-5.1)
[2024-04-12] MEDS: METOPROLOL TAR 25 MG TAB PO SCH (08:57)
[2024-04-12] MEDS: CEFTRIAXONE 1,000 MG in NA CHLORIDE 0.9% 50 ML IVPB SCH (08:58)
[2024-04-12] MEDS: POTASSIUM CL SA 10 MEQ TAB PO ONE (09:01)
[2024-04-12] MEDS: MAGNESIUM SULFATE 1 gm IVPB 1 GM/100 ML BAG IV ONE (09:01)
[2024-04-12] MEDS: HYDROCODONE/APAP 7.5/325 MG TAB PO PRN (20:40)
[2024-04-13 06:13] LABS: Anion Gap 7.9 mEq/L (5.0-15.0); Magnesium 1.9 mg/dL (1.6-2.4); Potassium 3.9 mEq/L (3.5-5.1)
[2024-04-13] MEDS ORDERED: KETOROLAC 10 MG TAB PO PRN (20:09)
[2024-04-13] MEDS: MELATONIN 5 MG TABLET PO PRN (22:26)
[2024-04-13] MEDS: MORPHINE 2 MG/ML SYR IV PRN (23:19)
[2024-04-14 04:53] LABS: Anion Gap 9.8 mEq/L (5.0-15.0); Potassium 3.8 mEq/L (3.5-5.1)
[2024-04-14 08:18] LABS: Absolute Eosinophils 0.3 K/uL (0-0.5); Absolute Lymphocytes (CBC) 1.4 K/uL (0.7-4.9); Absolute Monocytes 0.8 K/uL (0.1-1.3); Absolute Neutrophil 5.3 K/uL (1.8-8.0); Basophils % 0.5 % (0-1.3); Eosinophils % 3.7 % (0-4.4); Hematocrit 30.3 % (36.0-45.0); Hemoglobin 10.4 g/dL (12.0-15.0); Lymphocytes % 18.2 % (15.3-44.8); MCH 29.5 pg (27.0-35.0); MCHC 34.4 g/dL (32.0-36.0); MCV 85.9 fL (80-100); MPV 7.3 fL (7.6-11.3); Monocytes % 10.2 % (3.3-12.3); Neutrophils % 67.4 % (41.7-73.7); Platelets 332 thou/uL (152-406); RBC Red Blood Cell Count 3.53 M/uL (3.86-4.86); Red Cell Distribution Width 14.4 % (12.1-15.2)
[2024-04-14 08:34] LABS: ALT/SGPT < 14 U/L (13-56); AST/SGOT 15 U/L (15-37); Albumin/Globulin Ratio 0.6 (1.1-1.8); Alkaline Phosphatase 62 U/L (45-117); Anion Gap 10.9 mEq/L (5.0-15.0); BUN Blood Urea Nitrogen 12 mg/dL (7-18); Bicarbonate 25 mEq/L (21-32); Bilirubin Total 0.4 mg/dL (0.2-1.0); Globulin 3.5 g/dL (2.3-3.5); Glomerular Filtration Rate 91 ml/min (=/>90); Glucose Level 113 mg/dL (74-106); Potassium 3.9 mEq/L (3.5-5.1); Protein, Total 5.5 g/dL (6.4-8.2); Sodium Level 136 mEq/L (136-145)
[2024-04-14 09:00] LABS: Band Neutrophils 2 % (0-1); Differential Total Cells Count 100; Eosinophils 6 % (0-3); Lymphocytes 19 % (15-42); Monocytes 4 % (0-10); Platelet Estimate ADEQ; Segmented Neutrophils 69 % (40-80)
[2024-04-14 09:01] LABS: Blood Morphology Comment NOT SEEN (NOT SEEN); Polychromasia 1+
--- NOTE | 2024-04-14 11:15 | EKG ---
Test Date: 2024-04-06 Test Time: 05:41:01 Electric Operator: ROSEANN MEASUREMENT RESULTS: Intervals: Rate: 60 UT: 150 QRSD: 90 QT: 494 QTc: 494 [place]: P: 59 UT: 150 QRS: 59 T: 42 INTERPRETIVE STATEMENTS: Normal sinus rhythm Prolonged QT Abnormal ECG Compared to ECG 12/06/2004 08:09:00 Prolonged QT interval now present Sinus bradycardia no longer present Left ventricular hypertrophy no longer present Electronically Signed On 04-14-24 11:02:14 MANUFACTURING ENGINEER by Adriel Roy
--- NOTE | 2024-04-14 16:24 | P.PN ---
Date of Service: 04/14/24 Subjective Chief Complaint: no overnight events, pt awaiting continued work with PT and transfer to [facility] Hemoglobin 10.4 today Review of Systems 10-point ROS is otherwise unremarkable Physical Examination - Vital Signs reviewed - Physical Exam General: Alert, Oriented x3, afebrile Neck: Supple, supple Respiratory: Clear to auscultation, equal breath sounds Cardiovascular: Normal pulses, +1 edema to right lower extreme Capillary refill: <2 Seconds Gastrointestinal: Normal bowel sounds, nontender Musculoskeletal: Other right lower extremity weakness, right upper extremity splint Integumentary: (Right hip fracture surgical dressing, right proximal phalanx, splint in place with Jorge Luis wrap) Neurological: Normal speech, Normal strength at 5/5 x4 extr, pulses right upper lower extremity intact Assessment And Plan - Current Problems (Diagnosis) Closed right hip fracture microcytic anemia Current Visit: Yes Status: Acute (2) Proximal phalanx fracture of finger Current Visit: Yes Status: Acute microcytic anemia Current Visit: Yes Status: Acute DJD (degenerative joint disease) Current Visit: Yes Status: Acute Spondylosis of cervical spine Current Visit: Yes Status: Acute Chronic pain Current Visit: Yes Status: Acute Ground-level fall Current Visit: Yes Status: Acute - Plan Assessment This is a 78-year-old female who is being admitted following an episode of ground-level fall which occurred while she was trying to open her house door. She states that she lost her balance. She denies syncope, head trauma. Workup in the ER including any CT which revealed moderately severe degenerative changes. Patient has a history of cervical spondylolysis. She was noted to have extreme right knee pain and her leg with shortened and externally rotated. CT right hip showed fx of right hip. right hip fracture Fall Generalized weakness Cervical spondylolysis Depression Chronic pain Plan: Right comminuted displaced intertrochanteric fracture with involvement of the lesser trochanter. Right thumb proximal phalanx fracture, which is intra-articular. ortho consult for right hip fracture, fracture of the proximal phalanx of the right hand Status post 1 right hip closed reduction with intramedullary fran fixation using to fix this system. 2. Right thumb closed reduction, percutaneous pin fixation. Will admit under observation with telemetry Multimodal pain regimen PT/OT before discharge planning Nicotine patch Resume home medications upon reconciliation continue work with PT/OT <Suzan Trent - Last Filed: 04/14/24 16:18> Patient was seen and examined. Events of the last 24 hours have been noted. Spoke with with SARA regarding patient's clinical picture after evaluating and examining the patient independently. I performed a substantial part of the MDM during this patient's care today. I personally made or approved the documented management plan and acknowledge its risk of complications. I agree with the findings and documentation provided in the SARA's notes. Spoke with patient's daughter regarding the inpatient rehab being denied. Appeal is pending. In the meantime will need to give her other facilities where she can go for halfway rehab. They would prefer [facility] swing bed but they are not sure if this is in network with [facility]. <Sundeep Orr - Last Filed: 04/15/24 10:36>
[2024-04-14] MEDS: ENSURE ENLIVE 237 ML CAN PO SCH (21:00)
--- NOTE | 2024-04-15 13:30 | P.PN ---
Date of Service: 04/15/24 Subjective Chief Complaint: no overnight events, pt awaiting continued work with PT and transfer to [facility] denied auth for IPR, family has entered an appeal Review of Systems 10-point ROS is otherwise unremarkable Physical Examination - Vital Signs reviewed - Physical Exam General: Alert, Oriented x3, afebrile Neck: Supple, supple Respiratory: Clear to auscultation, equal breath sounds Cardiovascular: Normal pulses, +1 edema to right lower extreme Capillary refill: <2 Seconds Gastrointestinal: Normal bowel sounds, nontender Musculoskeletal: Other right lower extremity weakness, right upper extremity splint Integumentary: (Right hip fracture surgical dressing, right proximal phalanx, splint in place with Jorge Luis wrap), + sensation Neurological: Normal speech, Normal strength at 5/5 x4 extr, pulses right upper lower extremity intact Assessment And Plan - Current Problems (Diagnosis) Closed right hip fracture microcytic anemia Current Visit: Yes Status: Acute (2) Proximal phalanx fracture of finger Current Visit: Yes Status: Acute microcytic anemia Current Visit: Yes Status: Acute DJD (degenerative joint disease) Current Visit: Yes Status: Acute Spondylosis of cervical spine Current Visit: Yes Status: Acute Chronic pain Current Visit: Yes Status: Acute Ground-level fall Current Visit: Yes Status: Acute - Plan Assessment This is a 78-year-old female who is being admitted following an episode of ground-level fall which occurred while she was trying to open her house door. She states that she lost her balance. She denies syncope, head trauma. Workup in the ER including any CT which revealed moderately severe degenerative changes. Patient has a history of cervical spondylolysis. She was noted to have extreme right knee pain and her leg with shortened and externally rotated. CT right hip showed fx of right hip. right hip fracture Fall Generalized weakness Cervical spondylolysis Depression Chronic pain Plan: Right comminuted displaced intertrochanteric fracture with involvement of the lesser trochanter. Right thumb proximal phalanx fracture, which is intra-articular. ortho consult for right hip fracture, fracture of the proximal phalanx of the right hand Status post 1 right hip closed reduction with intramedullary fran fixation using to fix this system. 2. Right thumb closed reduction, percutaneous pin fixation. Nicotine patch Resume home medications upon reconciliation Will admit under telemetry Multimodal pain regimen PT/OT before discharge planning - attempting IPR post Right hip arthroplasty and right thumb closed reduction, internal fixation Continue PT/OT Await appeal for placement
[2024-04-15 15:44] VITALS: O2SAT 97
[2024-04-16] MEDS: ZOLPIDEM TARTRATE 10 MG TABLET PO ONE (02:23)
--- NOTE | 2024-04-16 09:01 | P.DS ---
Admission Date: 04/06/24 Discharge Date: 04/17/24 Reason for Admission: generalized weakness and fall Consultations: Dr. Joy Procedures: Right hip arthroplasty Right thumb closed reduction, percutaneous fixation Brief History of Present Illness: Patient is a 78-year-old female with past medical history of depression and chronic pain. She presented to the ER following an episode of fall. Patient usually ambulates with a cane, which she uses when she is outside of the house. Patient currently lives in a mobile home. When indoor, she does not usually use her cane. She has been falling a lot lately. She was in the process of opening her house door when she suddenly lost balance and fell. She fell onto her right side injuring her right elbow and right knee. Patient denies hitting her head onto the ground. She also denies loss of consciousness. Otherwise, she has been in her usual state of health. CT of the knee revealed moderately severe degenerative changes of the right knee. She is being admitted for therapy. Hospital Course: Mrs. Gabriel was subsequently found to have a right displaced hip fracture and a right fracture dislocation of her thumb. She underwent an ORIF of the right hip with Dr. Joy and had a reduction and percutaneous pinning of her right thumb. She did have a drop in her hemoglobin postsurgically from 10.1-7.6 and received 2 units of packed red blood cell . Her hemoglobin has remained stable. She has been working with PT and OT in the hospital and was looking for inpatient rehab but her insurance denied authorization. The family is appealing the decision but in the meantime agrees to [facility] or [facility] to continue preparation for rehab. <Suzan Trent - Last Filed: 04/17/24 11:51> Admission Date: 04/06/24 Discharge Date: 04/17/24 Hospital Course: Discharge diagnosis right hip fracture Fall Generalized weakness Cervical spondylolysis Depression Chronic pain Fracture of right finger <lexy rossi - Last Filed: 04/17/24 19:01> Disposition: TRANSFER TO INPATIENT REHAB Discharge Condition: GOOD Vital Signs/Physical Exam: Temp Pulse Resp BP Pulse Ox 97.8 F 51 14 131/62 93 04/16/24 08:00 04/16/24 08:00 04/16/24 08:00 04/16/24 08:00 04/16/24 08:00 General: In no apparent distress, Other (Patient had some insomnia last p.m. and was given Ambien at 2 AM. She is resting with eyes closed and respirations even and unlabored) HEENT: Atraumatic, Normocephalic Respiratory: Normal air movement Cardiovascular: Regular rate/rhythm, Normal S1 S2 Capillary refill: <2 Seconds Gastrointestinal: Soft and benign Musculoskeletal: Other (Postop bandage to right hip and pins and bulky bandage remained to right upper extremity, sensation intact) Integumentary: No rashes Neurological: Normal speech, Normal tone, Normal affect Lymphatics: No axilla or inguinal lymphadenopathy External genitalia: Deferred Rectal: Deferred Laboratory Data at Discharge: WBC 7.90 thou/uL (4.3-10.9) 04/14/24 08:01 Hgb 10.4 g/dL (12.0-15.0) L 04/14/24 08:01 Hct 30.3 % (36.0-45.0) L 04/14/24 08:01 Plt Count 332 thou/uL (152-406) 04/14/24 08:01 PT 13.4 SECONDS (9.4-12.5) H 04/06/24 00:30 INR 1.20 04/06/24 00:30 Sodium 136 mEq/L (136-145) 04/14/24 08:01 Potassium 3.9 mEq/L (3.5-5.1) 04/14/24 08:01 BUN 12 mg/dL (7-18) 04/14/24 08:01 Creatinine 0.60 mg/dL (0.55-1.02) 04/14/24 08:01 Glucose 113 mg/dL (74-106) H 04/14/24 08:01 Phosphorus 3.0 mg/dL (2.5-4.9) 04/12/24 04:57 Magnesium 1.9 mg/dL (1.6-2.4) 04/13/24 05:26 Total Bilirubin 0.4 mg/dL (0.2-1.0) 04/14/24 08:01 AST 15 U/L (15-37) 04/14/24 08:01 ALT < 14 U/L (13-56) 04/14/24 08:01 Alkaline Phosphatase 62 U/L (45-117) 04/14/24 08:01 <Heavenly Trenty Jemraine - Last Filed: 04/17/24 11:51> Vital Signs/Physical Exam: Temp Pulse Resp BP Pulse Ox 97.9 F 57 16 136/65 94 04/17/24 12:00 04/17/24 12:00 04/17/24 12:00 04/17/24 12:00 04/17/24 12:00 Laboratory Data at Discharge: WBC 7.90 thou/uL (4.3-10.9) 04/14/24 08:01 Hgb 10.4 g/dL (12.0-15.0) L 04/14/24 08:01 Hct 30.3 % (36.0-45.0) L 04/14/24 08:01 Plt Count 332 thou/uL (152-406) 04/14/24 08:01 PT 13.4 SECONDS (9.4-12.5) H 04/06/24 00:30 INR 1.20 04/06/24 00:30 Sodium 136 mEq/L (136-145) 04/14/24 08:01 Potassium 3.9 mEq/L (3.5-5.1) 04/14/24 08:01 BUN 12 mg/dL (7-18) 04/14/24 08:01 Creatinine 0.60 mg/dL (0.55-1.02) 04/14/24 08:01 Glucose 113 mg/dL (74-106) H 04/14/24 08:01 Phosphorus 3.0 mg/dL (2.5-4.9) 04/12/24 04:57 Magnesium 1.9 mg/dL (1.6-2.4) 04/13/24 05:26 Total Bilirubin 0.4 mg/dL (0.2-1.0) 04/14/24 08:01 AST 15 U/L (15-37) 04/14/24 08:01 ALT < 14 U/L (13-56) 04/14/24 08:01 Alkaline Phosphatase 62 U/L (45-117) 04/14/24 08:01 <lexy rossi - Last Filed: 04/17/24 19:01> Diet: Regular Activity: Ad sergio <Trent,Suzan Jermaine - Last Filed: 04/17/24 11:51> <lexy rossi - Last Filed: 04/17/24 19:01> Home Medications: Aspirin [Aspirin EC 81 MG] 81 mg PO DAILY 06/02/16 Fluoxetine HCl [Prozac] 40 mg PO DAILY 06/02/16 Multivitamin [Multivitamins] 1 tab PO DAILY 06/02/16 Omeprazole 40 mg PO DAILY 06/02/16 lisinopriL [Prinivil*] 20 mg PO DAILY 06/02/16 Ascorbic Acid [Vitamin C] 1,000 mg PO DAILY 04/06/24 Cholecalciferol (Vitamin D3) [Vitamin D3] 25 mcg PO DAILY 04/06/24 Oxybutynin Chloride [Oxybutynin Chloride ER] 5 mg PO DAILY 04/06/24 Tramadol HCl [Ultram] 50 mg PO Q6HP PRN 04/06/24 Physician Discharge Instructions: Brief History of Present Illness: Patient is a 78-year-old female with past medical history of depression and chronic pain. She presented to the ER following an episode of fall. Patient usually ambulates with a cane, which she uses when she is outside of the house. Patient currently lives in a mobile home. When indoor, she does not usually use her cane. She has been falling a lot lately. She was in the process of opening her house door when she suddenly lost balance and fell. She fell onto her right side injuring her right elbow and right knee. Patient denies hitting her head onto the ground. She also denies loss of consciousness. Otherwise, she has been in her usual state of health. CT of the knee revealed moderately severe degenerative changes of the right knee. She is being admitted for therapy. Hospital Course: Mrs. Gabriel was subsequently found to have a right displaced hip fracture and a right fracture dislocation of her thumb. She underwent an ORIF of the right hip with Dr. Joy and had a reduction and percutaneous pinning of her right thumb. She did have a drop in her hemoglobin postsurgically from 10.1-7.6 and received 2 units of packed red blood cell . Her hemoglobin has remained stable. She has been working with PT and OT in the hospital and was looking for inpatient rehab but her insurance denied authorization. Ms. Gabriel has a bed in [facility] inpatient rehab today. Followup: aDvian Joy MD [ACTIVE - CAN ADMIT] - 1-2 Weeks Jacky Pichardo MD [Primary Care Provider] - 1-2 Weeks
--- NOTE | 2024-04-16 12:09 | P.PN ---
Date of Service: 04/16/24 Subjective Chief Complaint: no overnight events, pt awaiting continued work with PT and transfer to [facility] denied auth for IPR, family has entered an appeal Review of Systems 10-point ROS is otherwise unremarkable Physical Examination - Vital Signs reviewed - Physical Exam General: Alert, Oriented x3, afebrile Neck: Supple, supple Respiratory: Clear to auscultation, equal breath sounds Cardiovascular: Normal pulses, +1 edema to right lower extreme Capillary refill: <2 Seconds Gastrointestinal: Normal bowel sounds, nontender Musculoskeletal: Other right lower extremity weakness, right upper extremity splint Integumentary: (Right hip fracture surgical dressing, right proximal phalanx, splint in place with Jorge Luis wrap), + sensation Neurological: Normal speech, Normal strength at 5/5 x4 extr, pulses right upper lower extremity intact Assessment And Plan - Current Problems (Diagnosis) Closed right hip fracture microcytic anemia Current Visit: Yes Status: Acute (2) Proximal phalanx fracture of finger Current Visit: Yes Status: Acute microcytic anemia Current Visit: Yes Status: Acute DJD (degenerative joint disease) Current Visit: Yes Status: Acute Spondylosis of cervical spine Current Visit: Yes Status: Acute Chronic pain Current Visit: Yes Status: Acute Ground-level fall Current Visit: Yes Status: Acute - Plan Assessment This is a 78-year-old female who is being admitted following an episode of ground-level fall which occurred while she was trying to open her house door. She states that she lost her balance. She denies syncope, head trauma. Workup in the ER including any CT which revealed moderately severe degenerative changes. Patient has a history of cervical spondylolysis. She was noted to have extreme right knee pain and her leg with shortened and externally rotated. CT right hip showed fx of right hip. right hip fracture Fall Generalized weakness Cervical spondylolysis Depression Chronic pain Plan: Right comminuted displaced intertrochanteric fracture with involvement of the lesser trochanter. Right thumb proximal phalanx fracture, which is intra-articular. ortho consult for right hip fracture, fracture of the proximal phalanx of the right hand Status post 1 right hip closed reduction with intramedullary fran fixation using to fix this system. 2. Right thumb closed reduction, percutaneous pin fixation. Nicotine patch Resume home medications upon reconciliation Will admit under telemetry Multimodal pain regimen PT/OT before discharge planning - attempting IPR post Right hip arthroplasty and right thumb closed reduction, internal fixation Continue PT/OT Await appeal for placement - SNF orders placed while appeal pending
[2024-04-16] MEDS: ZOLPIDEM TARTRATE 5 MG TABLET PO ONE (23:49)
[2024-04-18 01:05] VITALS: BP 136/65; TEMP 97.9
== END 2024-04-17 15:18 | DRG 481 ==
LOC: ER 22:24 → 2ND 04-06 04:17 → OBSVTOIN 04-06 18:21
PROVIDERS: ADMIT Internal Medicine; ATTEND Internal Medicine
PROC: 30233N1 Transfusion of Nonautologous Red Blood Cells into Peripheral Vein, Percutaneous Approach (ICD-10-PCS; 2024-04-06)
PROC: 0QS636Z Reposition Right Upper Femur with Intramedullary Internal Fixation Device, Percutaneous Approach (ICD-10-PCS; principal; 2024-04-07 15:00)
PROC: 0PSR34Z Reposition Right Thumb Phalanx with Internal Fixation Device, Percutaneous Approach (ICD-10-PCS; 2024-04-07 15:00)
DX: S72.141A Displaced intertrochanteric fracture of right femur, initial encounter for closed fracture (principal); R64 Cachexia; S62.511A Displaced fracture of proximal phalanx of right thumb, initial encounter for closed fracture; I10 Essential (primary) hypertension; G62.9 Polyneuropathy, unspecified; G89.29 Other chronic pain; M47.892 Other spondylosis, cervical region; D50.9 Iron deficiency anemia, unspecified; F32.A Depression, unspecified; M19.90 Unspecified osteoarthritis, unspecified site; S83.91XA Sprain of unspecified site of right knee, initial encounter; Z90.49 Acquired absence of other specified parts of digestive tract; Z79.82 Long term (current) use of aspirin; Z79.899 Other long term (current) drug therapy; Z68.22 Body mass index [BMI] 22.0-22.9, adult; W18.30XA Fall on same level, unspecified, initial encounter; Y93.89 Activity, other specified; Y92.019 Unspecified place in single-family (private) house as the place of occurrence of the external cause; Y99.9 Unspecified external cause status
CPT/HCPCS: 36415; 71045; 72125; 72131; 73700; 76000; 80048; 80053; 80069; 80076; 81001; 82947; 83605; 83735; 83880; 84100; 84484; 85014; 85018; 85025; 85610; 86850; 86900; 86901; 86920; 93005; 96374; 96375; 97110; 97116; 97161; 97165; 97530; 99285; G0378; J0690; J0696; J1100; J1171; J1200; J1650; J1940; J2003; J2270; J2405; J2704; J3010; J3475; J7030; J7050; J7120; P9016

== ENCOUNTER 2024-04-17 14:13 | Inpatient (IN) | payer OTHER ==
--- OUTSIDE RECORDS SUMMARY | 2024-04-17 15:20 | XMS REPORT | Continuity of Care Document ---
Author Name Unknown Address [address] [place] [address] [facility] thconnect Address [address] [place] [address] Care Team Providers Care Paymaster Of Purses Name Role Phone Kylee PIERSON MD, Jacky Nogueira Primary Care Physician Sanjana Ny Attending Clinician Unavailable ISABEL SALINAS Attending Clinician Unavailable Jessee Figueroa MD Attending Clinician [phone] JESSEE FIGUEROA Attending Clinician Unavail able PRIYANKA MEANS Attending Clinician Unavailable Priya Redman MD Attending Clinician [phone] PRIYA REDMAN Attending Clinician Unavailable DIANN TORRES Attending Clinician Unavailable DIANN TORRES Attending Clinician Unavailable RADIOLOGY Attending Clinician Unavailable Radiology Attending Clinician Unavailable Jose-Mbayo_A_AH Attending Clinician Unavailable JESSEE FIGUEROA Admitting Clinician Unavail able Jose-Mbayo_A_AH Admitting Clinician Unavailable Payers Payer Name Policy Type Policy Number Effective Date Expirati on Date Source [place] PREMIUM H[place] [id number] 2022 00:00:00 [employer] MEDICARE Medicare [id number] 2023 00:00:00 [place]MEDICARE REPLACEMENT/ADVANT AGE - HMO) [id number] 2019 00:00:00 Problems Condition Name Condition Details Condition Category Status Onset Date Resolution Date Last Treatment Date Treating Clinician Comments Source Preoperati ve cardiovasc ular examinatio n Preoperati ve cardiovasc ular examinatio n Disease Active 8-30 00:00: 00 [facility] Preoperati ve cardiovasc ular examinatio n Preoperati ve cardiovasc ular examinatio n Disease Active 8-20 00:00: 00 Timothy Mckeon Epic Thoracic compressio n fracture Thoracic compressio n fracture Disease Active 6 00:00: 00 Timothy Mason Scoliosis Scoliosis Disease Active 6 00:00: 00 Timothy Mason Peripheral neuropathy Peripheral neuropathy Disease Active 6 00:00: 00 Timothy Mason Memory loss Memory loss Disease Active 09-06 00:00: 00 Timothy Mason Lumbar radiculopa thy Lumbar radiculopa thy Disease Active 6 00:00: 00 Timothy Mason Back pain Back pain Disease Active 6 00:00: 00 Timothy Mason Cervical myelopathy Cervical myelopathy Disease Active 6 00:00: 00 Timothy Mason Overactive bladder Overactive bladder Disease Active 1-25 00:00: 00 Timothy Mason Microscopi c colitis Microscopi c colitis Disease Active 8-03 00:00: 00 [facility] Urinary incontinen ce Urinary incontinen ce Disease Active 5-16 00:00: 00 Timothy Mason Chronic diarrhea Chronic diarrhea Disease Active 3-28 00:00: 00 Timothy Mason Tobacco use Tobacco use Disease Active 2-13 00:00: 00 Timothy Mason Fatigue Fatigue Disease Active 2-13 00:00: 00 Timothy Mason Fall Fall Disease Active 2-13 00:00: 00 Timothy Mason Dysuria Dysuria Disease Active 2-13 00:00: 00 Mem[facility] Mike Epic Pruritus of scalp Pruritus of scalp Disease Active 1-19 00:00: 00 Timothy Mason Lower urinary tract infectious disease Lower urinary tract infectious disease Disease Active 8-17 00:00: 00 Timothy Mason H/O: depression H/O: depression Disease Active 3-10 00:00: 00 Timothy Mason Essential hypertensi on Essential hypertensi on Disease Active 1-09 00:00: 00 Timothy Mason Left foot pain Left foot pain Disease Active 5- 00:00: 00 [facility] Memory impairment Memory impairment Disease Resolve d 8-20 00:00: 00 2024-01-09 00:00:00 2024-01-09 13:15:48 Timothy Mason Allergies, Adverse Reactions, Alerts Allergy Name Allergy Type Status Severity Reaction(s) Onset Date Inactive Date Treating Clinician Comments Source NO KNOWN ALLERGIE S Drug Class Active [facility] NO KNOWN ALLERGIE S SYSTEMIC Active [facility] ALLERGIE S NOT ON FILE SYSTEMIC Active MHEOUT NO KNOWN ALLERGIE S SYSTEMIC Active MHEOUT NO KNOWN ALLERGIE S SYSTEMIC Active MHEOUT Social History Social Habit Start Date Stop Date Quantity Comments Source Gender identity 2023-06-23 13:43:01 Identifies as female gender (finding) Maya Mckeon [facility] History of tobacco use Cigarette Smoker [facility] farzana Mason ASSERTION Possible [facility] Mike Mason Sexual orientation [facility] History of Social function 2024-01-09 00:00:00 2024-01-09 [facility]:00 [facility] Alcoholic beverage intake 2023-11-30 00:00:00 2023-11-30 00:00:00 0 /d [facility] Alcohol intake 2023-01-01 00:00:00 2023-01-01 00:00:00 0 /d [facility] Sex assigned at 1945 00:00:00 1945 00:00:00 [facility] Smoking Status Start Date Stop Date Source Smokes tobacco daily 2023-09-07 00:00:00 [facility] Medications Ordered Medication Name Filled Medication [...] noon and 1 tablet in the evening. [facility] loperamide (IMODIUM A-D) 2 mg capsule 11-29 12:37: 57 Yes 2mg Take 1 capsule by mouth 2 (two) times daily as needed for Diarrhea. [facility] omeprazole 40 mg capsule 11-29 12:37: 57 Yes 40mg Take 1 capsule by mouth in the morning. [facility] lisinopriL- hydrochloro thiazide 20-25 mg per tablet 11-29 00:00: 00 11-30 04:59 :00 No [id number] 1{tbl} Take 1 tablet by mouth in the morning. [facility] traMADol (Ultram) 50 MG tablet traMADol (Ultram) 50 MG tablet 10-14 00:00: 00 Yes [id number] 50mg QD TAKE 1 TABLET BY MOUTH [...] 00:00: 00 09-06 23:59 :00 No 300mg [id number] 3D Take 1 capsule by mouth in the morning and 1 capsule at noon and 1 capsule in the evening. Timothy Mason memantine (Namenda) 5 MG tablet memantine (Namenda) 5 MG tablet 6-07 00:00: 00 02-25 00:00 :00 No 5mg Q.5D Take 1 tablet by mouth in the morning and 1 tablet in the evening. Timothy Mckeon Epic vibegron (GEMTESA) 75 mg Tab 2022-04 2-15 00:00: 00 Yes [id number] 75mg Take 75 mg by mouth in the morning. [facility] alendronate (Fosamax) 70 MG tablet alendronate (Fosamax) 70 MG tablet 2022-04 00:00: 00 Yes 70mg 70 mg = 1 tab, PO, Q7D, # 12 tab, 0 Refill(s) Timothy Mckeon Epic estradioL (ESTRACE) 0.01 % (0.1 mg/gram) vaginal cream 2022-04 00:00: 00 Yes [id number] Apply 1g vaginally at bedtime 3 times per week (Sunday//) [facility] vibegron (GEMTESA) 75 mg Tab 2022-04 0- 00:00: 00 Yes [id number] 75mg Take 75 mg by mouth in the morning. [facility] estradioL (ESTRACE) 0.01 % (0.1 mg/gram) vaginal cream 2022-04 0-02 00:00: 00 02-16 00:00 :00 No [id number] Apply 1g vaginally at bedtime every night for 4 weeks [facility] cholestyram ine 4 gram packet 12-13 00:00: 00 Yes [facility] gabapentin 300 mg capsule -05 00:00: 00 Yes 300mg Take 1 capsule by mouth in the morning and 1 capsule in the evening. [facility] budesonide 3 mg 24 hr capsule 12-01 00:00: 00 Yes 9mg Take 3 capsules by mouth in the morning. [facility] traMADol (Ultram) 50 MG tablet traMADol (Ultram) 50 MG tablet 8-31 00:00: 00 10-14 00:00 :00 No 50mg [...] 70 mg tablet 10-20 00:00: 00 Yes [facility] lisinopriL 5 mg tablet 10-20 00:00: 00 11-29 00:00 :00 No [facility] Cholecalcif frances, Vitamin D3, 125 mcg (5,000 unit) capsule 10-19 00:00: 00 Yes 125ug Take 125 mcg by mouth. [facility] oxyBUTYnin chloride 5 mg tablet 08-15 00:00: 00 08-15 04:59 :00 No 5mg Take 1 tablet by mouth. [facility] FLUoxetine (PROzac) 40 MG capsule FLUoxetine (PROzac) 40 MG capsule -20 00:00: 00 Yes 40mg 40 mg = 1 cap, PO, Daily, # 30 cap, 1 Refill(s) Timothy Mason lisinopril- hydroCHLORO thiazide 20-25 MG tablet lisinopril- hydroCHLORO thiazide 20-25 MG tablet - 00:00: 00 Yes 1 tab, PO, Daily, 0 Refill(s) Timothy Mason FLUoxetine (PROZAC) 40 mg capsule 07-04 00:00: 00 Yes [facility] lisinopril- hydrochloro thiazide (PRINZIDE,Z ESTORETIC) 20-25 mg per tablet 07-04 00:00: 00 11-29 00:00 :00 No [facility] Vital Signs Vital Name Observation Time Observation Value Comments Torres smith Systolic blood pressure 2024-01-09 13:15:00 132 mm[Hg] [facility] peters Epic Diastolic blood pressure 2024-01-09 13:15:00 65 mm[Hg] [facility] Epic Heart rate 2024-01-09 13:15:00 85 /min Mem[facility] ial Mike Epic Body temperature 2024-01-09 13:15:00 [facility] 2024-01-09 13:15:00 16 /min [facility] Mike Epic Body height 2024-01-09 13:15:00 162.6 cm Augustin rial [place] Epic Body weight 2024-01-09 13:15:00 62.143 kg Augustin rial [place] Epic BMI 2024-01-09 13:15:00 23.52 kg/m2 Augustin rial Mike Epic Oxygen saturation in Arterial blood by Pulse oximetry 2024-01-09 13:15:00 99 /min Maya peters Epic Systolic blood pressure 2024-01-09 13:15:00 132 mm[Hg] [facility] Epic Diastolic blood pressure 2024-01-09 13:15:00 65 mm[Hg] [facility] Epic Heart rate 2024-01-09 13:15:00 85 /min Memor ial [place] Epic Body temperature 2024-01-09 13:15:00 [facility] 2024-01-09 13:15:00 16 /min [facility] Mike Epic Body height 2024-01-09 13:15:00 162.6 cm Augustin rial Mike Epic Body weight 2024-01-09 13:15:00 62.143 kg Augustin rial [facility] Epic BMI 2024-01-09 13:15:00 23.52 kg/m2 Augustin rial Mike Epic Oxygen saturation in Arterial blood by Pulse oximetry 2024-01-09 13:15:00 99 /min [facility] Her peters [facility] Systolic blood pressure 2023-11-30 17:25:00 187 mm[Hg] [facility] Diastolic blood pressure 2023-11-30 17:25:00 81 mm[Hg] [facility] Heart rate 2023-11-30 17:25:00 60 /min [facility] Respiratory rate 2023-11-30 17:25:00 18 /min [facility] Body height 2023-11-30 17:25:00 162.6 cm [facility] Body weight 2023-11-30 17:25:00 61.961 kg [facility] BMI 2023-11-30 17:25:00 23.45 kg/m2 [facility] Oxygen saturation in Arterial blood by Pulse oximetry 2023-11-30 17:25:00 99 /min [facility] Systolic blood pressure 2023-02-16 20:32:00 138 mm[Hg] [facility] Diastolic blood pressure 2023-02-16 20:32:00 65 mm[Hg] [facility] Heart rate 2023-02-16 20:32:00 78 /min [facility] Body temperature 2023-02-16 20:32:00 37.11 Olga [facility] Body height 2023-02-16 20:32:00 162.6 cm [facility] Body weight 2023-02-16 20:32:00 62.234 kg [facility] BMI 2023-02-16 20:32:00 23.55 kg/m2 [facility] Procedures Procedure Date / Time Performed Performing Clinicia n Source MR BRAIN WO CONTRAST 2023-05-16 20:26:09 Jessee Figueroa [facility] Encounters Start Date/Time End Date/Time Encounter Type Admission Type Attending Clinicians Care Facility Care Department Encounter ID Source 2024-01-10 09:13:00 Outpatient Sanjana Palacios [facility] [id number] [facility] 2024-04-29 15:30:00 2024-04-29 15:30:00 Outpatient ISABEL NOBLES [facility] [id number] [facility] 2024-02-25 00:00:00 2024-02-26 09:50:37 RefJessee Barnhart 1.2.840.114 [id number] [id number] Timothy butt [facility] 2024-01-09 13:15:00 2024-01-09 13:31:38 Office Visit Jessee Figueroa [id number] 350.1.13.70 8.2.7.2.686 [id number] 13:05:33 2024-01-09 13:31:38 Outpatient Elective JESSEE FIGUEROA [facility] [id number] [facility] 2023-12-14 07:21:00 2023-12-14 07:21:00 Outpatient PRIYANKA WATTS [facility] [id number] [facility] 2023-12-11 00:00:00 2023-12-12 12:41:34 [facility] 1.2.840.114 350.1.13.10 [id number] [id number] [facility] 2023-11-30 12:30:00 2023-11-30 13:02:15 [facility] [id number] [facility] 2023-11-30 12:30:00 2023-11-30 13:02:15 [facility] 1.2.840.114 350.1.13.10 4.2.7.2.686 [id number] [facility] 2023-10-15 00:00:00 2023-10-15 15:02:10 Refill Jessee Figueroa 1.2.840.114 350.1.13.70 8.2.7.2.686 [id number] Timothy butt [facility] 2023-09-07 13:20:19 2023-09-07 14:16:12 Outpatient Elective JESSEE FIGUEROA [facility] M[facility]OUT [id number] [facility] 2023-06-08 13:00:00 2023-06-08 13:00:00 Outpatient R DIANN TORRES DIANN [facility] [id number] [facility] 2023-05-16 13:10:13 2023-05-16 23:59:00 Outpatient R RADIOLOGY [facility] [id number] [facility] 2023-05-16 13:10:13 2023-05-16 23:59:00 Hospital Encounter Radiology [facility] 1.2.840.114 350.1.13.10 4.2.7.2.686 [id number] [facility] 2023-03-16 15:00:00 2023-03-16 15:47:23 Outpatient R DIANN TORRES DIANN [facility] [id number] [facility] 2023-03-16 15:00:00 2023-03-16 15:47:23 [facility] 1.2.840.114 350.1.13.10 4.2.7.2.686 [id number] [facility] 2023-02-16 15:00:00 2023-02-16 16:28:33 Outpatient R DIANN TORRES DIANN [facility] [id number] [facility] 2023-02-16 15:00:00 2023-02-16 16:28:33 Office Visit Diann Torres [facility] 1.2.840.114 350.1.13.10 4.2.7.2.686 [id number] [facility] 2023-01-29 11:30:00 2023-01-29 11:30:00 [facility] [id number] 2023-01-01 14:30:2023-01-01 16:10:05 Outpatient Tripp YELENA, DIANNTIERRA TORRES DIANN [facility] [id number] [facility] 2019-05-21 07:24:00 2019-05-21 07:24:00 Outpatient Richie _Jero_SABIHA VFP VFP [id number] [facility] Results Test Description Test Time Test Comments [...] the mastoid air cells or paranasal airsinuses. [facility]
[2024-04-17] MEDS: APIXABAN 2.5 MG TABLET PO SCH (21:05)
[2024-04-17] MEDS: GABAPENTIN 300 MG CAP PO SCH (21:05)
[2024-04-17] MEDS: HYDROCODONE/APAP 5/325 MG TAB PO PRN (21:06)
[2024-04-17] MEDS: ENSURE HIGH PROTEIN 237 ML CAN PO SCH (21:06)
[2024-04-17] MEDS: MELATONIN 5 MG TABLET PO PRN (21:07)
[2024-04-18 05:54] LABS: Absolute Basophils 0.1 K/uL (0-0.5); Absolute Eosinophils 0.2 K/uL (0-0.5); Absolute Lymphocytes (CBC) 2.6 K/uL (0.7-4.9); Absolute Monocytes 0.7 K/uL (0.1-1.3); Absolute Neutrophil 5.7 K/uL (1.8-8.0); Basophils % 0.6 % (0-1.3); Eosinophils % 2.5 % (0-4.4); Hematocrit 30.9 % (36.0-45.0); Hemoglobin 10.7 g/dL (12.0-15.0); Lymphocytes % 27.7 % (15.3-44.8); MCH 29.7 pg (27.0-35.0); MCHC 34.6 g/dL (32.0-36.0); MCV 85.9 fL (80-100); MPV 7.1 fL (7.6-11.3); Neutrophils % 61.2 % (41.7-73.7); Nucleated Red Blood Cells % 0.1 % (0-0); Platelets 433 thou/uL (152-406); Red Cell Distribution Width 14.9 % (12.1-15.2)
[2024-04-18 06:38] LABS: Albumin 2.3 g/dL (3.4-5.0); Anion Gap 5.9 mEq/L (5.0-15.0); Potassium 3.9 mEq/L (3.5-5.1); Prealbumin 16.7 mg/dL (20-40)
[2024-04-18] MEDS: PANTOPRAZOLE 40MG TABLET PO SCH (07:21)
[2024-04-18] MEDS: FLUOXETINE 20 MG CAP PO SCH (07:23)
[2024-04-18] MEDS: lisinopriL 20 MG TAB PO SCH (07:23)
[2024-04-18] MEDS: ASCORBIC ACID 500 MG TABLET PO SCH (07:23)
[2024-04-18] MEDS: OXYBUTYNIN ER 5 MG TAB PO SCH (07:23)
[2024-04-18] MEDS: ASPIRIN EC 81 MG TAB PO SCH (07:23)
[2024-04-18] MEDS: MULTIVITAMIN TAB PO SCH (07:24)
[2024-04-18] MEDS: NICOTINE 14 MG/PAT TD SCH (07:26)
[2024-04-18] MEDS: VITAMIN D 1000 UNIT TAB PO SCH (07:31)
[2024-04-18] MEDS: TRAMADOL HCL 50 MG TAB PO PRN (10:51)
--- NOTE | 2024-04-18 14:05 | P.RH.PN ---
Estimated Length of Stay: 14 Expected Discharge Date: 05/01/24 Discharge Disposition Plan: Home Family Support: Yes Alf Goal: Mobility, Transfers, Self Care Vital Signs: Last Vital Signs Temp 97.7 F 04/18/24 08:00 Pulse 59 04/18/24 08:00 Resp 14 04/18/24 08:00 BP 147/66 H 04/18/24 08:00 Pulse Ox 97 04/18/24 08:00 Laboratory: Laboratory Last Values WBC 9.30 thou/uL (4.3-10.9) 04/18/24 05:36 RBC 3.60 M/uL (3.86-4.86) L 04/18/24 05:36 Hgb 10.7 g/dL (12.0-15.0) L 04/18/24 05:36 Hct 30.9 % (36.0-45.0) L 04/18/24 05:36 MCV 85.9 fL (80-100) 04/18/24 05:36 MCH 29.7 pg (27.0-35.0) 04/18/24 05:36 MCHC 34.6 g/dL (32.0-36.0) 04/18/24 05:36 RDW 14.9 % (12.1-15.2) 04/18/24 05:36 Plt Count 433 thou/uL (152-406) H 04/18/24 05:36 MPV 7.1 fL (7.6-11.3) L 04/18/24 05:36 Neutrophils % 61.2 % (41.7-73.7) 04/18/24 05:36 Lymphocytes % 27.7 % (15.3-44.8) 04/18/24 05:36 Monocytes % 8.0 % (3.3-12.3) 04/18/24 05:36 Eosinophils % 2.5 % (0-4.4) 04/18/24 05:36 Basophils % 0.6 % (0-1.3) 04/18/24 05:36 Absolute Neutrophils 5.7 K/uL (1.8-8.0) 04/18/24 05:36 Absolute Lymphocytes 2.6 K/uL (0.7-4.9) 04/18/24 05:36 Absolute Monocytes 0.7 K/uL (0.1-1.3) 04/18/24 05:36 Absolute Eosinophils 0.2 K/uL (0-0.5) 04/18/24 05:36 Absolute Basophils 0.1 K/uL (0-0.5) 04/18/24 05:36 Sodium 136 mEq/L (136-145) 04/18/24 05:40 Potassium 3.9 mEq/L (3.5-5.1) 04/18/24 05:40 Chloride 107 mEq/L (98-107) 04/18/24 05:40 Carbon Dioxide 27 mEq/L (21-32) 04/18/24 05:40 Anion Gap 5.9 mEq/L (5.0-15.0) 04/18/24 05:40 BUN 16 mg/dL (7-18) 04/18/24 05:40 Creatinine 0.65 mg/dL (0.55-1.02) 04/18/24 05:40 Est GFR (CKD-EPI) 89 ml/min (=/>90) L 04/18/24 05:40 Glucose 98 mg/dL (74-106) 04/18/24 05:40 Calcium 8.3 mg/dL (8.5-10.1) L 04/18/24 05:40 Magnesium 2.0 mg/dL (1.6-2.4) 04/18/24 05:40 Albumin 2.3 g/dL (3.4-5.0) L 04/18/24 05:40 Prealbumin 16.7 mg/dL (20-40) L 04/18/24 05:40 Weight: 130 lb Wound Present: No Physician Update: Labs reviewed and are stable. Mod assist bed mobility and supine to sit, min to mod assist sit to stand, RG 15', WC 75' x 2. Urine incontinence. Max for lower body dressing, toileting, transfers mod assist, set up with eating and oral hygiene. Comment: skin is intact Summary: Patient's care plan and detention goals have been reviewed and revised as necessary. Please see the Rehabilitation Signature page for all necessary sig natures.
[2024-04-18] MEDS: MAGNESIUM OXIDE 400 MG TAB PO SCH (20:50)
[2024-04-18] MEDS: ENSURE ENLIVE 237 ML CAN PO SCH (20:50)
--- NOTE | 2024-04-18 21:23 | HP ---
Date of Admission: 04/17/2024 Time Of Service: 1 p.m. Chief Complaint: "I fell and broke my right hip and right arm." History Of Present Illness: Ms. Gabriel is an 78-year-old patient, who was attempting to unlock her front door when she fell onto the ramp. She was brought to the emergency department. Workup showed generalized weakness, depression, chronic pain, and right comminuted displaced intertrochanteric femu r fracture. Fracture involved the lesser trochanter. In addition, she had right thumb proximal phal anx fracture and then intra-articular region. She had microcytic anemia, degenerative disk disease, spondylosis of the cervical region. She was seen by Orthopedic Service with recommendation of comple tion of the cervical intervention including right hip closed reduction with intramedullary fran fixati on and she had right thumb closed reduction. In addition, there was percutaneous pin fixation. Foll owing surgery, she had pain management and was evaluated by the Physical Therapy and the Occupational Therapy Service and determined that she was functioning well below her baseline level of functioning . Prior to the injury, she lived with her independently, utilizing a single prong cane for a mbulation and that was outdoors mostly. She was able to cook, clean, drive herself, and be fully ind ependent. Currently, she is at a minimum assistance level for [id number], moderate assistance and continuing to require cues for touchdown weightbearing restriction of the right lower extremity. She does have some pain in the right knee and below. In addition, she needs management of her hypertens ion, hemoglobin and hematocrit for anemia, elevated blood sugars, and management of her pain. She is now admitted to the inpatient rehabilitation unit for physical and occupational therapy and if need be speech therapy to help her return to her prior level of functioning and reduce risk of rehospitali zation. Past Medical History: Depression, chronic pain. Allergies: NO KNOWN DRUG ALLERGIES. Medications: Eliquis 2.5 mg twice daily, aspirin 81 mg daily, vitamin C 1000 mg daily, vitamin D 100 0 units daily, Questran 4 g twice daily, Prozac 40 mg daily, gabapentin 300 mg 3 times daily, Verbena 5 /325 every 4 hours as needed. She has a lidocaine patch now applied to the right knee, Prinivil 20 m g daily, melatonin 5 mg at bedtime, Centrum Silver 1 tablet daily, Nicoderm patch 14 patch daily for tobacco withdrawal, Ensure Enlive 237 mL twice daily, Ditropan XL 5 mg daily, Protonix 40 mg daily, a nd tramadol 50 mg every 6 hours as needed. Laboratory Studies: White blood cell count 9.3, hemoglobin 10.7, platelets 433. Sodium 136, potassi um 3.9, chloride 107, carbon dioxide 27, BUN 16, creatinine 0.65, prealbumin 16.7, albumin 2.3, magne sium 2.0, calcium 8.3, glucose 98. Urinalysis is pending. Family History: Noncontributory. Social History: No alcohol, tobacco, or IV drug use. Review of Systems: Pain in the right knee to the ankle, also has mild swelling in the left thigh area where surgical sit e is in, but no significant pain in the right finger fracture which is well bandaged and held close a cross the chest. She just had a good bowel movement today twice and has no nausea. No issues of sle eping. Says she had a very good night's sleep last night. Current Level Of Functioning: Currently, she requires setup assistance for eating and grooming, maxi mal assistance for bathing, upper body dressing and lower body dressing, all maximum assistance. For toileting, moderate assistance. Wheelchair transfer to bed, toilet, chair, moderate assistance. Am bulation, she will be ambulated. She has touchdown weightbearing in the right lower extremity. Physical Examination: Vital Signs: Blood pressure 147/66, pulse 59, respiratory rate 14, temperature 97.7, oxygen saturati on 97%. Weight 130 pounds, height 5 feet 4 inches, BMI 22.3. General: Ms. Gabriel is sitting in her wheelchair just finishing bathroom. HEENT: She appears normocephalic, atraumatic. Sclerae anicteric. Oropharynx pink and moist. Neck: Supple. Chest: Clear. Extremities: No significant edema or cyanosis in the extremities. Right upper extremity is well ban daged and the right hip surgical site has good hemostasis. She has no weakness on the left upper and lower extremity. In terms of the right, she has pain limiting her ability to lift the right leg due to the recent surgery and of course her fracture. Her right thumb is not painful at this point. Rehab And Medical Assessment And Plan: Ms. Gabriel is an 78-year-old patient with depression, anxiet y, admitted to the inpatient rehabilitation unit with impairment category 07, fracture of lower extre mity on the left. Etiologic diagnosis is 11.10, unilateral hip fracture. Her etiologic diagnosis, r ight comminuted displaced intertrochanteric fracture with involvement of the lesser trochanter and ri ght thumb fracture. Plan: 1.She will have physical and occupational therapy 3 hours a day, 5 of 7 days. 2.We will address issues of risk for deep vein thrombosis with Eliquis 2.5 mg twice daily, aspirin 8 1 mg daily for stroke risk reduction, Verbena for addressing her pain along with tramadol, Verbena 5/325 q.4 as needed and tramadol 50 mg q.4 as needed. She has Prozac for depression. She has gabapentin f or neuropathic pain to help reduce her risk of narcotic use. She has Prinivil for hypertension, walt tonin for insomnia. She has nicotine patch for tobacco dependency, Ditropan for urinary retention, P rotonix for GE reflux. Comorbidities That Are Impacting Rehabilitation: She does have history of tobacco dependency and malcolm s have the nicotine patch on board, it will be continued and she has depression addressed with antide pressant as noted. Of course, risk for deep vein thrombus is present given the surgery and the restr iction of movement of the right arm. She will have Eliquis and mobilization and hydration for that. Rehab Specific Plan: Ms. Gabriel will have physical and occupational therapy for 3 hours a day, 5 of 7 days, to improve her ability to transfer from bed to chair to a wheelchair, on and off the toilet, in and out of the shower, perform toileting, perform showering. Occupational therapy was helpful wi th dressing upper and lower body, donning and doffing footwear, managing her activities of daily sabina ng safely. If need be, Speech Therapy will be called in to help with their cognitive issues to help her make safe decisions to maintain touchdown weightbearing status with the right lower extremity. Ms. Gabriel and her family have a good understanding of the process of admission to the inpatient [facility] and how she will benefit from physical and occupational therapy. She will have 24 h ours a day, 7 days a week, skilled rehabilitation and nursing, daily physician evaluation and managem ent, social service evaluation and management for discharge planning, home equipment, physician angela savage, and to continue with therapy. If need be, the Hospitalist Service and the Orthopedic Service wi ll be consulted for further help. Barriers To Discharge: At this point, she should be able to do well. She was fully independent befo re and has the touchdown weightbearing status. If she is unable to manage with the left side and the left arm, of course the right arm is now restricted and the right lower extremity touchdown weightbe aring. She may have to go to assisted and not really able to go directly home. However, she should be able to go home once time is enough for her to be released to put more weight on the right lower extremity and perhaps at least 50% before she is able to go home and do so safely. Length Of Stay: About 14 to 15 days. Disposition: Expected to be home with family and continue therapy via Home Health. Prognosis: Good. Code Status: Full code. Rehab Specific Goals: 1.Become independent with upper and lower body dressing, donning and doffing footwear. 2.Independently transfer from bed to chair to toilet to wheelchair. 3.Independently perform showering. 4.Independently ambulate 250 feet with a rolling walker. 5.Independently propel a wheelchair 250 feet. 6.Independently go up and down 5 steps with bilateral handrails. 7.Independently perform cognitive functioning. The above goals were reviewed with Ms. Gabriel and she is in agreement. By signing this document, I acknowledge I personally performed a full physical examination on Ms. Luc ambrosio no later than 24 hours after her admission to the inpatient rehabilitation facility and determin ed that she is able to tolerate the above course of treatment at an intensive level for a reasonable period of time. A detailed individualized plan of care for her will be completed by hospital day 4 based on the preadmission screen, history and phy sical, and therapy evaluations. LATONYA/SHANE Voice ID: [id number]
[2024-04-18] MEDS: TRAZODONE 50 MG TABLET PO PRN (22:04)
[2024-04-19 04:40] LABS: Specific Gravity 1.007 (1.005-1.030); Sqamous Epithelial <5 /HPF (None Seen); Urine Bacteria None Seen /HPF (<20); Urine Bilirubin NEGATIVE (Negative); Urine Blood Negative (Negative); Urine Clarity Clear (Clear); Urine Color Colorless (Yellow); Urine Crystals Unidentified Few /HPF (None Seen); Urine Culture Reflex Order NOT NEEDED; Urine Glucose NEGATIVE (Negative); Urine Ketones NEGATIVE (Negative); Urine Micro Reflex YN NO BILL MICROSCOPIC; Urine Mucus Slight /HPF (None Seen); Urine Nitrite NEGATIVE (Negative); Urine Protein NEGATIVE (Negative); Urine RBC <5 /HPF (None Seen); Urine Urobilinogen Normal (Normal); Urine WBC <5 /HPF (<5); Urine pH 6.5 (5.0-7.0)
[2024-04-19] MEDS: LIDOCAINE 4% PATCH TOP SCH (09:43)
[2024-04-21] MEDS ORDERED: DIVALPROEX DR 250 MG TAB PO SCH (20:00)
[2024-04-21] MEDS: DIVALPROEX NA 125 MG CAP PO SCH (21:13)
--- NOTE | 2024-04-22 00:23 | PN ---
Date of Progress Note: 04/21/2024 Time Of Service: 1:20 p.m. Subjective: Ms. Gabriel is doing well. She is mobilizing around the unit in a wheelchair w rapped and protected. She denies any significant pain there. She also has a fractured right hip, wh ere she says there is some pain going down from the right knee towards the ankle. The lidocaine patc h did provide very minimal improvement. Other medications were adjusted including neuromodulator, th at was discussed with her. Mild myalgias and arthralgias involving the right lower extremity. No si gnificant disturbances reported in the right upper extremity. Otherwise, no positives on the review of systems. Physical Examination: Vital Signs: Blood pressure 138/50, pulse 59, respiratory rate 16, temperature 98.2, oxygen saturati on 97%. Ms. Gabriel mobilizes the wheelchair using the left hand. The right hand is again held across the est and is well protected in a soft restriction to the thumb, where she had surgery for the fracture in the right hip area and has good hemostasis. There is no evidence of any bleeding. No cyanosis. No evidence of stasis or edema in the right lower extremity. Laboratory Studies: No new laboratory studies. X-ray/imaging: No new x-rays or imaging. Medications: Mather 5/325 every 4 hours as needed. Eliquis 2.5 mg twice daily for DVT risk reduction , vitamin C 1000 mg daily, aspirin 81 mg daily, vitamin D 1000 units daily. She has a Questran Lite 4 g twice daily for diarrhea. She now has some Depakote. She did report some difficulty with mood a nd difficulty with relaxing at night and so Depakote is now added at 125 mg twice daily. She is also on Prozac 40 mg daily for her depression. She has gabapentin for neuropathic pain 300 mg 3 times da belia. She has Prinivil 20 mg daily for blood pressure management, magnesium oxide 400 mg twice daily for muscle spasms, Centrum on board, melatonin for insomnia. Nicotine patch 14 mg daily for tobacco withdrawal. Ensure Enlive 237 mL twice daily for malnutrition, Ditropan for overactive bladder, Prot jacqueline for GE reflux, tramadol for pain, and the trazodone, which is for insomnia. Progress Made With Physical, Occupational Therapy: Today with physical therapy, she performed multip le cgs-bi-xaimv transfers with minimum to moderate assistance. She did have difficulty with weight b earing status and transfer and touchdown weightbearing. She with a rolling walker, close to 105 feet , moderate assistance for positioning and weightbearing status, performed wheelchair mobilization 125 feet with minimum assistance and verbal cues for maneuvering. Assessment: Ms. Gabriel is an 79-year-old patient in the rehabilitation unit with left hip fracture. She has a unilateral fracture and it is a right comminuted, displaced intertrochanteric fracture an d also right thumb fracture. She has had surgical repair. She has decreased mobility, decreased phy sical functioning, in addition to insomnia and neuropathic pain. Tobacco dependency with potential f or tobacco withdrawal, which is addressed with nicotine patch. She has hypertension, depression, dif ficulty with relaxation and sleeping, difficulty and a risk of stroke and deep vein thromb osis. Plan: She will continue with physical and occupational therapy 3 hours a day, 5 of 7 days. Continue with comorbid condition medications. Again, Depakote was added at 125 mg twice daily along with Pro kulwant for her mood stabilization. Aspirin for stroke and Eliquis for DVT risk reduction and other medi cations as noted will be continued along with her therapy. LATONYA/SHANE Voice ID: [id number] Report ID: [id number]
[2024-04-22] MEDS: CHOLESTYRAMINE/ASP 4 GM/PKT PO PRN (08:25)
[2024-04-23] MEDS: LOPERAMIDE HCL 2 MG CAPSULE PO STA (14:42)
--- NOTE | 2024-04-23 18:14 | PN ---
Date of Progress Note: 04/23/2024 Time Of Service: 1:25 p.m. Subjective: Ms. Gabriel is resting in bed and her son is at the bedside. She does report some muscl e spasms and pain in the right hip where she has a fracture and also on the right thumb. She is worr ied about the cost of being in rehab, saying an expensive daily charge is being made, and she is worr ied about how long she will be staying in the rehab unit and where she goes after and she was told ab out the option for prison. She is not safe enough to go home and the length of time that th ey would be covered was also discussed. Otherwise, again some spasms and pain in the right hip about 6/10 and pain medications were adjusted. Objective: Again, pain noted in the right hip. Some mild myalgias in the right surgical site. The right thumb not causing any pain. Physical Examination: Vital Signs: Blood pressure is 123/53, pulse 75, temperature 97, oxygen saturation 99%. General: Ms. Gabriel again is lying in bed and she was again somewhat worried about the pain in the right hip. She is again working with that. She has mild weakness due to pain in that right lower ex tremity. Right upper extremity is wrapped and immobilized where she has a thumb surgery. Otherwise, no new findings on exam. Laboratory Studies: No new laboratory studies. X-ray/imaging: No new x-rays or imaging. Medications: Her medications have been reviewed and she does have the duloxetine added 20 mg twice d aily. She has Ensure Clear. She had about she said up to 8 loose stools today and she has Imodium o n board and the Ensure was changed to Ensure Clear. She also has gabapentin changed from 300 mg 3 ti mes daily to 600 mg twice daily. She has lidocaine patch which she at 1 point said is not very helpf ul for her pain. Imodium is 2 mg every 4 hours as needed. She has melatonin for insomnia. Nicotine patch for tobacco dependency, Ditropan for urinary retention, Protonix for GE reflux, tramadol for p ain, which she has a schedule 50 mg twice daily and Desyrel for insomnia. Progress Made With Physical And Occupational Therapy: Today, she performed multiple loajaa-nu-iks tr ansfers with minimum assistance. Multiple fpi-kd-ccuwt transfers with minimum assistance and verbal cues. She also ambulated 25 feet 3 times with a rolling walker with minimum assistance and verbal cu es. Mobilized a wheelchair 150 feet with standby assistance and verbal cues for maneuvering. Assessment: Ms. Gabriel is an 79-year-old patient in rehabilitation unit with comminuted right femor al fracture. She has surgical repair. She has right thumb fracture and also surgical repair there. She has decreased mobility, decreased physical functioning. She has significant pain that has been addressed, this is right lower extremity. She has insomnia, she has neuropathic pain. She has anxie ty, hypertension, and several loose stools today and tobacco dependency. Plan: 1.She will continue with physical and occupational therapy 3 hours a day, 5 of 7 days. 2.Continue with the changes in medications including Cymbalta and gabapentin along with lidocaine pa tc. She has Prozac as well on board. She has Ensure Clear to minimize her having chances of more l oose stools. She has Questran which she has been taking at home as scheduled. She has vitamin C on board, Eliquis for DVT prophylaxis, Bighorn for pain. 3.Again, continue with physical and occupational therapy 3 hours a day, 5 of 7 days, and continue wi th list of comorbid condition medications and mostly the pain has been a limiting factor for her and then the worry about going home and those have been adjusted and discussed. LATONYA/SHANE Voice ID: [id number] Report ID: [id number]
[2024-04-23] MEDS: TRAMADOL HCL 50 MG TAB PO SCH (18:22)
[2024-04-23] MEDS: GABAPENTIN 300 MG CAP PO SCH (19:09)
[2024-04-23] MEDS: DULOXETINE 20 MG CAP PO SCH (19:09)
[2024-04-23] MEDS: ENSURE CLEAR 200 ML CAN PO SCH (19:09)
[2024-04-24 06:20] LABS: Absolute Basophils 0.1 K/uL (0-0.5); Absolute Eosinophils 0.1 K/uL (0-0.5); Absolute Lymphocytes (CBC) 1.3 K/uL (0.7-4.9); Absolute Monocytes 0.9 K/uL (0.1-1.3); Basophils % 0.6 % (0-1.3); Eosinophils % 1.3 % (0-4.4); Hemoglobin 9.6 g/dL (12.0-15.0); Lymphocytes % 15.8 % (15.3-44.8); MCH 29.8 pg (27.0-35.0); MCHC 34.3 g/dL (32.0-36.0); MCV 86.9 fL (80-100); MPV 7.3 fL (7.6-11.3); Monocytes % 10.3 % (3.3-12.3); Platelets 490 thou/uL (152-406); RBC Red Blood Cell Count 3.22 M/uL (3.86-4.86); Red Cell Distribution Width 15.1 % (12.1-15.2)
[2024-04-24 06:38] LABS: Albumin 2.3 g/dL (3.4-5.0); Anion Gap 7.2 mEq/L (5.0-15.0); Magnesium 2.2 mg/dL (1.6-2.4); Potassium 4.2 mEq/L (3.5-5.1); Prealbumin 13.7 mg/dL (20-40)
[2024-04-24] MEDS: CHOLESTYRAMINE/ASP 4 GM/PKT PO SCH (10:52)
--- NOTE | 2024-04-24 23:41 | PN ---
Date of Progress Note: 04/24/2024 Time Of Service: 1:10 p.m. Subjective: Ms. Gabriel is resting in the room. is at the bedside. She does report some on going pain, somewhat more, she said perhaps 8 or even 9, although the affect does always match and th is is in the right hip where there is displaced comminuted fracture and in the right thumb, which is wrapped and immobilized. Pain medications were adjusted again to help manage the pain. She does hav e Depakote on board, Cymbalta twice daily, as well as gabapentin 600 mg twice daily. In addition, sh antelmo has tramadol, which is scheduled and again Allen, so multiple modalities to address the pain. Review of Systems: Again, some mild to moderate pain reported even in bed and while doing touchdown weightbearing status of the right lower extremity. Physical Examination: Vital Signs: Blood pressure 101/53, pulse 62, respiratory rate 16, temperature 97.4, oxygen saturati on 97%. General: Again, Ms. Gabriel is resting in bed. HEENT: She is normocephalic, atraumatic. Sclerae anicteric. Oropharynx pink and moist. Neck: Supple. Extremities: Right forearm and thumb immobilized where she had surgery after fracture. She has good hemostasis. Right hip surgical site, no evidence of swelling to suggest deep vein thrombus in the r ight lower extremity. Laboratory Studies: White blood cell count 8.3, hemoglobin 9.6, platelets 490. Sodium 136, potassiu m 4.2, chloride 105, carbon dioxide 28, BUN 70, creatinine 0.73, glucose 139, calcium 8.2. Magnesium 2.2. Albumin 2.3, prealbumin 13.7. X-ray/imaging: No new x-rays or imaging. Medications: Medications have been reviewed and as noted she did restart a cholestyramine resin 4 g 3 times daily with meals and also Questran Lite. She does have Depakote 125 mg twice daily for mood stabilization and managing pain. She has duloxetine 20 mg twice daily as well. Ensure Clear for mal nutrition. Prozac is present, gabapentin 600 mg twice daily. She has lidocaine patch applied as wel l Prinsonaliil for blood pressure control; Imodium for any other loose stools, which she has had. Curre ntly, no loose stools ongoing over the last few days. Magnesium oxide for muscle spasms, melatonin f or insomnia, nicotine patch for tobacco withdrawal, Protonix for GE reflux, tramadol for pain in nicole tion again Allen. Progress Made With Physical And Occupational Therapy: With physical therapy today, she did multiple sit to stand transfers with minimum assistance and verbal cues for proper hand placement. Multiple s ncig-zq-qdzwj transfers with moderate assistance. She did try hard to remember how to do things prop erly and therapist noted. Her occupational therapy, tee-bx-qwvzs transfers, contact guard. Wheelcha ir mobilization to shower transfer with grab bars with guard. Supervision required for bathing with long-handled sponge. Required partial assistance for upper body dressing, to button and unbutton becky rt. Required assistance with lower body dressing due to fracture of the right thumb, but did continu e to improve lower body dressing and transfers. She also ambulated 50 feet and 20 feet with contact guard assistance using a right platform walker. Assessment: Ms. Gabriel is an 79-year-old patient admitted to the rehabilitation unit with a right c omminuted displaced fracture of the femur on the right and surgically repaired. She also has right t humb fracture, which has been addressed surgically as well. She has decreased mobility, decreased ph ysical functioning, insomnia, neuropathic pain, anxiety, hypertension. No current loose stools, have resolved and she has tobacco dependency and has nicotine patch, which is very helpful. Still has si gnificant pain and pain management medication has been adjusted. Plan: 1.Continue with therapy 3 hours a day, 5 of 7 days. 2.She has a list of medications as noted. Multimodality approach to pain, Ensure Clear to help redu ce loose stools. She has Questran added with meals as well to stabilize the GI tract functioning, El iquis for DVT prophylaxis. She will continue with physical, occupational, and speech therapy. Continue all medications as noted. LB/YOVANNYL Voice ID: [id number] Report ID: [id number]
[2024-04-25] MEDS: LOPERAMIDE HCL 2 MG CAPSULE PO PRN (12:03)
--- NOTE | 2024-04-25 14:26 | P.RH.PN ---
Estimated Length of Stay: 16 Expected Discharge Date: 05/01/24 Discharge Disposition Plan: Home Family Support: Yes Senior Care Goal: Mobility, Transfers, Self Care Vital Signs: Last Vital Signs Temp 98.8 F 04/25/24 08:00 Pulse 75 04/25/24 08:00 Resp 16 04/25/24 08:00 BP 142/64 H 04/25/24 08:00 Pulse Ox 94 04/25/24 08:00 Laboratory: Laboratory Last Values WBC 8.30 thou/uL (4.3-10.9) 04/24/24 05:38 RBC 3.22 M/uL (3.86-4.86) L 04/24/24 05:38 Hgb 9.6 g/dL (12.0-15.0) L 04/24/24 05:38 Hct 28.0 % (36.0-45.0) L 04/24/24 05:38 MCV 86.9 fL (80-100) 04/24/24 05:38 MCH 29.8 pg (27.0-35.0) 04/24/24 05:38 MCHC 34.3 g/dL (32.0-36.0) 04/24/24 05:38 RDW 15.1 % (12.1-15.2) 04/24/24 05:38 Plt Count 490 thou/uL (152-406) H 04/24/24 05:38 MPV 7.3 fL (7.6-11.3) L 04/24/24 05:38 Neutrophils % 72.0 % (41.7-73.7) 04/24/24 05:38 Lymphocytes % 15.8 % (15.3-44.8) 04/24/24 05:38 Monocytes % 10.3 % (3.3-12.3) 04/24/24 05:38 Eosinophils % 1.3 % (0-4.4) 04/24/24 05:38 Basophils % 0.6 % (0-1.3) 04/24/24 05:38 Absolute Neutrophils 6.0 K/uL (1.8-8.0) 04/24/24 05:38 Absolute Lymphocytes 1.3 K/uL (0.7-4.9) 04/24/24 05:38 Absolute Monocytes 0.9 K/uL (0.1-1.3) 04/24/24 05:38 Absolute Eosinophils 0.1 K/uL (0-0.5) 04/24/24 05:38 Absolute Basophils 0.1 K/uL (0-0.5) 04/24/24 05:38 Sodium 136 mEq/L (136-145) 04/24/24 05:38 Potassium 4.2 mEq/L (3.5-5.1) 04/24/24 05:38 Chloride 105 mEq/L (98-107) 04/24/24 05:38 Carbon Dioxide 28 mEq/L (21-32) 04/24/24 05:38 Anion Gap 7.2 mEq/L (5.0-15.0) 04/24/24 05:38 BUN 17 mg/dL (7-18) 04/24/24 05:38 Creatinine 0.73 mg/dL (0.55-1.02) 04/24/24 05:38 Est GFR (CKD-EPI) 83 ml/min (=/>90) L 04/24/24 05:38 Glucose 139 mg/dL (74-106) H 04/24/24 05:38 Calcium 8.2 mg/dL (8.5-10.1) L 04/24/24 05:38 Magnesium 2.2 mg/dL (1.6-2.4) 04/24/24 05:38 Albumin 2.3 g/dL (3.4-5.0) L 04/24/24 05:38 Prealbumin 13.7 mg/dL (20-40) L 04/24/24 05:38 Urine Color Colorless (Yellow) 04/19/24 03:55 Urine Clarity Clear (Clear) 04/19/24 03:55 Urine pH 6.5 (5.0-7.0) 04/19/24 03:55 Ur Specific [place] 1.007 (1.005-1.030) 04/19/24 03:55 Glucose (UA)(Auto) Negative (Negative) 04/19/24 03:55 Urine Ketones Negative (Negative) 04/19/24 03:55 Urine Blood Negative (Negative) 04/19/24 03:55 Urine Nitrite Negative (Negative) 04/19/24 03:55 Urine Bilirubin Negative (Negative) 04/19/24 03:55 Urine Urobilinogen Normal (Normal) 04/19/24 03:55 Ur Leukocyte Esterase Negative Franck/uL (Negative) 04/19/24 03:55 Urine RBC <5 /HPF (None Seen) 04/19/24 03:55 Urine WBC <5 /HPF (<5) 04/19/24 03:55 Ur Squamous Epith Cells <5 /HPF (None Seen) 04/19/24 03:55 U Non-Squamous Epi Cells <5 /HPF (None Seen) 04/19/24 03:55 Unidentified Crystals Few /HPF (None Seen) 04/19/24 03:55 Urine Bacteria None seen /HPF (<20) 04/19/24 03:55 Urine Mucus Slight /HPF (None Seen) 04/19/24 03:55 Urine Culture Reflexed Not needed 04/19/24 03:55 Urine Total Protein Negative (Negative) 04/19/24 03:55 Weight: 130 lb Wound Present: No Closed Surgical Incision Present: Yes Negative Pressure Wound Therapy Present: No Physician Update: SLUMS 19 with mild to moderate cognitive impairment. Report moderate right hip pain with therapy. RW 50' with CGA, WC 50' with SBA. Forgetting her TDWB status. Mod to min assist for most ADLs. Unsafe with transfers. Comment: skin is intact Summary: Patient's care plan and longterm goals have been reviewed and revised as necessary. Please see the Rehabilitation Signature page for all necessary signatures.
--- NOTE | 2024-04-29 00:04 | PN ---
Date of Progress Note: 04/28/2024 Time Of Service: 1:35 p.m. Subjective: Ms. Gabriel is doing well, in the gym, mobilizing. She is happy so far with therapy and her pain level, she says, is about 4, although her appearance does not necessarily match in terms of facial appearance and affect to the reported pain level. The therapist noted that she has been doin g therapy when given the tramadol in the morning and scheduled, and not complaining of pain. Review of Systems: No significant myalgias, arthralgias. Still has some issues in terms of the right hip, where she has the right comminuted displaced fracture and the right thumb fracture that both have been surgically addressed. She did have some questions about when it would be time for her to be able to place more weight on the right lower extremity, which she is nonweightbearing at this point and would like to fo llow up of course with her orthopedic surgeon for that and that followup is coming just in the beginn ing of next month. Physical Examination: Vital Signs: Blood pressure 117/56, pulse 69, respiratory rate 18, temperature 97.4, oxygen saturati on 97%. General: Again, Ms. Gabriel is resting comfortably. She is in no significant distress. HEENT: She is normocephalic, atraumatic. Sclerae anicteric. Oropharynx pink and moist. Neck: Supple. Musculoskeletal: The right upper extremity is bandaged. She had thumb surgery there. Right lower e xtremity: Good hemostasis of the right hip surgical site. Again, some mild pain is noted there. Neurologic: She has no focal neurological deficits. Laboratory Studies: No new laboratory studies. X-ray And Imaging: No new x-rays or imaging. Medications: Her medications have been reviewed and are currently unchanged. Progress Made With Physical And Occupational Therapy: With physical therapy today, she performs supi ne-to-sit transfers with minimum assistance. Multiple rel-bq-cdbri transfers with moderate assistanc e and verbal cues. She did have decreased range of motion in the right lower extremity. She ambulat ed with a rolling walker 8 to 10 feet, 4 times with mod to min assist and verbal cues. Mobilized a w heelchair 250 feet with supervision. With occupational therapy, needed minimum assistance for toilet transfers, using grab bars. Constant verbal cues for scooting forward in the chair and leaning forw karin as well. It is noted that the patient was left in the dining room to eat lunch in the afternoon. She transferred from bed with all rails up. The call button was provided. She was propped on pill ow, and it was noted that she had some issues with memory. The therapist did indicate that whenever she needs a transfer, it was emphasized for her to press call button and receive assistance. Rehab And Medical Assessment And Plan: Ms. Gabriel is an 79-year-old patient with a comminuted right femoral fracture. She has a right thumb fracture. She has decreased mobility, decreased physical f unctioning, hypertension, anxiety, neuropathic pain, insomnia, and tobacco dependency. Plan: She will continue with physical and occupational therapy 3 hours a day, 5 of 7 days. She has the nicotine patch for tobacco dependency. She has trazodone for insomnia, tramadol for pain, Proton ix for GE reflux, Ditropan for urinary retention. She has melatonin for insomnia, magnesium oxide fo r muscle spasms, lisinopril for hypertension, gabapentin for neuropathic pain, the Cymbalta also adde d for neuropathic pain. She does have Depakote Sprinkles on board for mood stabilization. Cholester ol sequestrant medication present. Vitamin D 1000 units daily, aspirin 81 mg daily, vitamin C and El iquis 2.5 mg twice daily also on board. She will continue all of her comorbid condition medications that have been noted. Comorbidities Impacting Rehabilitation: Ms. Gabriel does appear to have significantly more reported pain than her affect or outward appearance would suggest. She is actually participating well in ther apy after she receives her tramadol. Her other medications for pain are available, and non-narcotic medications such as neuromodulators have been employed as well. LB/MODL Voice ID: [id number] Report ID: [id number]
--- NOTE | 2024-04-30 00:37 | PN ---
Date of Progress Note: 04/29/2024 Time Of Service: 1:20 p.m. Subjective: Ms. Gabriel is making some progress. She has mild improvement in terms of her pain in t he right comminuted displaced fracture and the femur and in the right thumb, which is bandaged and im mobilized. She has no new complaints. Review of Systems: Again, mild myalgias, arthralgias, especially in the right lower extremity where she has a surgical i ncision. No significant pain in the right upper extremity. Physical Examination: Vital Signs: Blood pressure 130/62, pulse 69, respiratory rate 18, temperature 97.4, oxygen saturati on 96% to 97%. General: Again, Ms. Gabriel is resting comfortably. She is in no significant distress. HEENT: She appears normocephalic, atraumatic. Sclerae anicteric. Neuro: Again, the right upper extremity is well immobilized and that is from forearm. Good hemostas is at the right hip surgical site. Laboratory Studies: No new laboratory studies. X-ray/imaging: No new x-rays or imaging. Medications: Her medications today have been reviewed and are unchanged. Progress Made With Physical, Occupational, And Speech Therapy: Today with physical therapy, she did gcczxx-rs-iow transfers with minimum assistance, perform multiple nji-fa-mfdik transfers with moderat e assistance and verbal cues. She mobilized a wheelchair 150 feet with supervision and verbal cues. With occupational therapy, minimum assistance with tub and shower transfer, constant cues required t o adhere to weightbearing status which is touchdown weightbearing. With speech, 3 of 3 unrelated words were recalled after 3 and 5-minute increments. Organizational th inking used for abstract concepts with 90% accuracy and minimum assistance. Cause and effect relatio nships discussed for improving problem-solving for activities of daily living and IADLs with 100% acc uracy and minimum assistance. Assessment: Ms. Gabriel is an 79-year-old patient, admitted to the rehabilitation unit with comminut ed right displaced femur fracture and right thumb fracture and those have been surgically repaired. She has decreased mobility, decreased physical functioning, moderate pain, GE reflux, tobacco depende ncy, insomnia, hypertension, mild depression and anxiety. Plan: She will continue with physical, occupational, and speech therapy, 3.5 hours, 5 of 7 days. e will continue with Eliquis, aspirin, vitamin D supplementation, [place] 5/325 for pain. She has Nate car on board to help with her mood stabilization and duloxetine 20 mg twice daily. She has Ensure f or malnutrition, Prozac for depression, gabapentin for neuropathic pain 600 mg twice daily, Prinivil for hypertension, she has lidocaine patch for pain, magnesium oxide 400 mg twice daily for muscle spa sms, melatonin for insomnia, Centrum Silver on board. She has nicotine for tobacco dependency and re ducing risk of stroke withdrawal and she has scheduled tramadol 50 mg twice daily along with trazodon e for insomnia. Comorbidities Impacting Rehabilitation: She does have some issues of mood and anxiety and depression and at times the patient reported pain level does not match her affect. She may report very high pa in level, but it is mild and speak, although it is very difficult if that is true pain response, but she is still taking very seriously and her medications are adjusted appropriately. LATONYA/YOVANNYL Voice ID: [id number] Report ID: [id number]
[2024-04-30 06:00] LABS: Absolute Eosinophils 0.2 K/uL (0-0.5); Absolute Lymphocytes (CBC) 1.5 K/uL (0.7-4.9); Absolute Neutrophil 6.5 K/uL (1.8-8.0); Basophils % 0.5 % (0-1.3); Eosinophils % 2.5 % (0-4.4); Hematocrit 25.8 % (36.0-45.0); Hemoglobin 8.7 g/dL (12.0-15.0); Lymphocytes % 16.2 % (15.3-44.8); MCH 29.5 pg (27.0-35.0); MCHC 33.9 g/dL (32.0-36.0); MCV 87.1 fL (80-100); MPV 6.6 fL (7.6-11.3); Monocytes % 11.3 % (3.3-12.3); Neutrophils % 69.5 % (41.7-73.7); Nucleated Red Blood Cells % 0.1 % (0-0); Platelets 530 thou/uL (152-406); RBC Red Blood Cell Count 2.96 M/uL (3.86-4.86); Red Cell Distribution Width 14.4 % (12.1-15.2)
[2024-04-30 06:22] LABS: Albumin 2.1 g/dL (3.4-5.0); Anion Gap 8.3 mEq/L (5.0-15.0); Magnesium 2.3 mg/dL (1.6-2.4); Potassium 4.3 mEq/L (3.5-5.1); Prealbumin 10.5 mg/dL (20-40)
[2024-04-30] MEDS: NA CHLORIDE 0.9% 1,000 ML IV SCH (15:00)
--- NOTE | 2024-05-01 00:24 | PN ---
Date of Progress Note: 04/30/2024 Time Of Service: 1:15 p.m. Subjective: Ms. Gabriel is doing well. She still has some minimal to mild pain in the right hip fra cture site and the right hand where she has some fracture that is surgically addressed. Review of Systems: Again, mild myalgias, arthralgias, and pain in the right hip, right hand. No fevers or chills. No w orsening in depression or anxiety. Still mildly depressed. Physical Examination: Vital Signs: Blood pressure 110/55, pulse 74, respiratory rate of 16, temperature 98.9, oxygen satur ation 95%. General: Again, Ms. Gabriel is in bed. HEENT: She is normocephalic, atraumatic. Sclerae anicteric. Oropharynx pink, moist. Neck: Supple. Chest: Clear. Neuro: She has good hemostasis in the right hip surgical site. The right hand is held in immobiliza tion. Laboratory Studies: White blood cell count 9.3, hemoglobin 8.7, platelets are 530. Sodium 132, pota ssium 4.3, chloride 103, carbon dioxide 25, BUN 17, glucose 95, calcium 8.5, magnesium 2.3, albumin 2 .1, prealbumin 10.5. X-ray/imaging: No new x-rays or imaging. Medications: Her medications have been reviewed and are unchanged. She is however receiving normal saline as she has poor hydration and it is 1 L at 75 cc an hour. Progress Made With Physical, Occupational, And Speech Therapy: Today with physical therapy, she was in bed, noted feeling tired. She did bed exercises, 2 sets of 10 and compound quad set exercises, he el slides, and she performed bmzqgq-xc-jtr transfer with standby assistance. She did have difficulty lifting her right lower extremity onto the bed. She did propel a wheelchair 75 feet with supervisio n and minimal verbal cues and started to fatigue at that point. She also propelled a wheelchair 75 f eet with supervision and further she did propel a wheelchair 200 feet independently with bilateral up per extremities and left lower extremity, minimum to moderate assistance was for stand and pivot watkins sfer. With speech, she improved BIMS score from 14 to 15 and SLUMS score from 19 to 23, consistent w ith mild short-term cognitive impairment. Her plan is to be able to be discharged to a skilled nursi ng, that will happen in the morning as she is not ready yet to go home. She will continue therapy an d medical management there. Assessment: Ms. Gabriel is an 79-year-old patient in the rehabilitation unit with comminuted displac ed fracture of the right femur and the right thumb fracture and both have been surgically repaired. She has decreased mobility, decreased physical functioning, anxiety, depression, GE reflux, tobacco d ependency, insomnia, hypertension. Plan: 1. She will have physical, occupational, and speech therapy until her discharge, that will be 3.5 kaitlin rs, 5 of 7 days. 2. Her list of comorbid condition medications are continuing. She is receiving some IV hydration. S he has [place] for pain, Depakote for mood stabilization, Ensure for malnutrition, Prozac for depressio n, gabapentin for neuropathic pain, Prinivil for hypertension, lidocaine patch to address her pain le nadiya as well. She has magnesium oxide for muscle spasm, Centrum on board, nicotine patches for tobacc o dependency, tramadol scheduled for pain, and trazodone for insomnia. In terms of her comorbidities impacting rehabilitation, the patient's pain in terms of her affect and the number she gives are not necessarily matching. She is participating, but reports again very sev ere pain, but not necessarily showing it, although some people are very different and may not express pain in that normal way. In the event, she does have multiple modality pain medications and when she is asking for pain medications, she is receiving it. LATONYA/SHANE Voice ID: [id number] Report ID: [id number]
[2024-05-01 07:30] VITALS: TEMP 98.7
[2024-05-01 10:57] VITALS: BP 146/72
--- NOTE | 2024-05-01 13:15 | P.RH.PN ---
Estimated Length of Stay: 14 Expected Discharge Date: 05/01/24 Discharge Disposition Plan: Home Family Support: Yes Halfway Goal: Mobility, Transfers, Self Care Vital Signs: Last Vital Signs Temp 98.7 F 05/01/24 07:25 Pulse 74 05/01/24 10:55 Resp 17 05/01/24 09:20 BP 146/72 H 05/01/24 10:55 Pulse Ox 94 05/01/24 09:20 Laboratory: Laboratory Last Values WBC 9.30 thou/uL (4.3-10.9) 04/30/24 05:31 RBC 2.96 M/uL (3.86-4.86) L 04/30/24 05:31 Hgb 8.7 g/dL (12.0-15.0) L 04/30/24 05:31 Hct 25.8 % (36.0-45.0) L 04/30/24 05:31 MCV 87.1 fL (80-100) 04/30/24 05:31 MCH 29.5 pg (27.0-35.0) 04/30/24 05:31 MCHC 33.9 g/dL (32.0-36.0) 04/30/24 05:31 RDW 14.4 % (12.1-15.2) 04/30/24 05:31 Plt Count 530 thou/uL (152-406) H 04/30/24 05:31 MPV 6.6 fL (7.6-11.3) L 04/30/24 05:31 Neutrophils % 69.5 % (41.7-73.7) 04/30/24 05:31 Lymphocytes % 16.2 % (15.3-44.8) 04/30/24 05:31 Monocytes % 11.3 % (3.3-12.3) 04/30/24 05:31 Eosinophils % 2.5 % (0-4.4) 04/30/24 05:31 Basophils % 0.5 % (0-1.3) 04/30/24 05:31 Absolute Neutrophils 6.5 K/uL (1.8-8.0) 04/30/24 05:31 Absolute Lymphocytes 1.5 K/uL (0.7-4.9) 04/30/24 05:31 Absolute Monocytes 1.0 K/uL (0.1-1.3) 04/30/24 05:31 Absolute Eosinophils 0.2 K/uL (0-0.5) 04/30/24 05:31 Absolute Basophils 0.0 K/uL (0-0.5) 04/30/24 05:31 Sodium 132 mEq/L (136-145) L 04/30/24 05:31 Potassium 4.3 mEq/L (3.5-5.1) 04/30/24 05:31 Chloride 103 mEq/L (98-107) 04/30/24 05:31 Carbon Dioxide 25 mEq/L (21-32) 04/30/24 05:31 Anion Gap 8.3 mEq/L (5.0-15.0) 04/30/24 05:31 BUN 17 mg/dL (7-18) 04/30/24 05:31 Creatinine 1.00 mg/dL (0.55-1.02) 04/30/24 05:31 Est GFR (CKD-EPI) 57 ml/min (=/>90) L 04/30/24 05:31 Glucose 95 mg/dL (74-106) 04/30/24 05:31 Calcium 8.5 mg/dL (8.5-10.1) 04/30/24 05:31 Magnesium 2.3 mg/dL (1.6-2.4) 04/30/24 05:31 Albumin 2.1 g/dL (3.4-5.0) L 04/30/24 05:31 Prealbumin 10.5 mg/dL (20-40) L 04/30/24 05:31 Urine Color Colorless (Yellow) 04/19/24 03:55 Urine Clarity Clear (Clear) 04/19/24 03:55 Urine pH 6.5 (5.0-7.0) 04/19/24 03:55 Ur Specific [place] 1.007 (1.005-1.030) 04/19/24 03:55 Glucose (UA)(Auto) Negative (Negative) 04/19/24 03:55 Urine Ketones Negative (Negative) 04/19/24 03:55 Urine Blood Negative (Negative) 04/19/24 03:55 Urine Nitrite Negative (Negative) 04/19/24 03:55 Urine Bilirubin Negative (Negative) 04/19/24 03:55 Urine Urobilinogen Normal (Normal) 04/19/24 03:55 Ur Leukocyte Esterase Negative Franck/uL (Negative) 04/19/24 03:55 Urine RBC <5 /HPF (None Seen) 04/19/24 03:55 Urine WBC <5 /HPF (<5) 04/19/24 03:55 Ur Squamous Epith Cells <5 /HPF (None Seen) 04/19/24 03:55 U Non-Squamous Epi Cells <5 /HPF (None Seen) 04/19/24 03:55 Unidentified Crystals Few /HPF (None Seen) 04/19/24 03:55 Urine Bacteria None seen /HPF (<20) 04/19/24 03:55 Urine Mucus Slight /HPF (None Seen) 04/19/24 03:55 Urine Culture Reflexed Not needed 04/19/24 03:55 Urine Total Protein Negative (Negative) 04/19/24 03:55 Weight: 146 lb 9.6 oz Wound Present: No Closed Surgical Incision Present: Yes Negative Pressure Wound Therapy Present: No Physician Update: Improved to 15 on BIMS, SLUMS 19, poor short term memory. Met 3 LTG and 2 STG, a lot of pain in the right hip after her daughter did right leg manipulation. Was doing mobilitation with min to mod assist. She has a low pain tolerance. Met 1/5 LTG with OT. Min assist with transfers, showers and dressing. Limited by right hand cast. Diarrhea is better today. Comment: skin is intact Summary: Patient's care plan and fdc goals have been reviewed and revised as necessary. Please see the Rehabilitation Signature page for all necessary signatures.
[2024-05-01 14:29] VITALS: BMI 25.1
--- NOTE | 2024-05-01 15:01 | RAD REPORT ---
Exam:Hip Right 2 View HISTORY: Right hip pain FINDINGS: Compression screws and intramedullary fran affixes a right femoral fracture No dislocation
== END 2024-05-01 16:50 | DRG 561 ==
LOC: 5TH 15:15
PROVIDERS: ADMIT Psychiatry & Neurology Neurology with Special Qualifications in Child Neurology; ATTEND Psychiatry & Neurology Neurology with Special Qualifications in Child Neurology
DX: S72.141D Displaced intertrochanteric fracture of right femur, subsequent encounter for closed fracture with routine healing (principal); S62.511D Displaced fracture of proximal phalanx of right thumb, subsequent encounter for fracture with routine healing; F32.A Depression, unspecified; G89.29 Other chronic pain; D50.9 Iron deficiency anemia, unspecified; M47.892 Other spondylosis, cervical region; F41.9 Anxiety disorder, unspecified; F17.200 Nicotine dependence, unspecified, uncomplicated; I10 Essential (primary) hypertension; G47.00 Insomnia, unspecified; K21.9 Gastro-esophageal reflux disease without esophagitis
CPT/HCPCS: 36415; 80048; 81001; 82040; 83735; 84134; 85025; 87077; 87086; 87088; 87186; 92523; 97110; 97116; 97129; 97163; 97165; 97530; 97542; J2003; J7030